=== PATIENT | female | born 2000 | race Caucasian/White ===

== ENCOUNTER → 2021-01-17 12:28 | Outpatient (CLI) | payer OTHER, SELFPAY ==
[2021-01-17 19:42] LABS: Add Manual Diff / Slide Review NO; Basophils Absolute Auto 100 /uL (0-100); Basophils Percent Auto 1.1 % (0-2); Eosinophils Absolute Auto 100 /uL (0-450); Eosinophils Percent Auto 1.7 % (2-4); Hemoglobin 13.5 g/dL (12.0-16.0); Lymphocytes Absolute Auto 2100 /uL (1100-4500); Lymphocytes Percent Auto 35.9 % (25-40); Mean Corpuscular HGB Conc 32.9 % (30-36); Mean Corpuscular Hemoglobin 29.2 PG (26-34); Mean Corpuscular Volume 88.8 fL (80-100); Monocytes Absolute Auto 300 /uL (0-900); Monocytes Percent Auto 5.4 % (3-14); Neutrophils Absolute Auto 3200 /uL (1500-7000); Neutrophils Percent Auto 55.9 % (50-75); Platelet Count 385 X10^3/uL (150-400); Red Blood Cell Count 4.62 X10^6/uL (4.0-5.2); Red Cell Distribution Width 13.4 % (11.6-14.8); White Blood Cell Count 5.8 X10^3/uL (4.5-11.0)
[2021-01-17 20:02] LABS: Alanine Aminotransferase 31 IU/L (<35); Albumin 4.4 g/dL (3.5-5.0); Albumin Globulin Ratio 1.4 (1.0-2.8); Alkaline Phosphatase 52 U/L (38-126); Aspartate Aminotransferase 27 IU/L (14-36); BUN Creatinine Ratio 17.6 (6-22); Bilirubin Total 0.9 mg/dL (0.2-1.3); Blood Urea Nitrogen 12 mg/dL (7-17); Calcium 9.5 mg/dL (8.4-10.2); Carbon Dioxide 24 mmol/L (22-32); Chloride 104 mmol/L (98-107); Estimated Glomerular Filt Rate > 60.0 mL/min (>60); Globulin 3.1 g/dL (1.7-4.1); Glucose 81 mg/dL (70-100); HEMOLYSIS < 15 (0-50); Potassium 4.6 mmol/L (3.4-5.1); Sodium 137 mmol/L (137-145); Total Protein 7.5 g/dL (6.3-8.2)
[2021-01-17 20:21] LABS: Thyroid Stimulating Hormone 8.99 uIU/mL (0.47-4.68)
[2021-01-17 20:57] LABS: Free T3, Triiodothyronine Free 3.79 pg/mL (2.77-5.27); Free T4, Direct Thyroxine 0.84 ng/dL (0.78-2.19)
== END ==
PROVIDERS: Family Provider Family Medicine; PCP Family Medicine; Visit Provider Family Medicine
DX: F41.9 Anxiety disorder, unspecified (principal); R00.2 Palpitations
CPT/HCPCS: 80053; 84439; 84443; 84481; 85025

== ENCOUNTER → 2021-09-10 08:04 | Outpatient (CLI) | payer OTHER, SELFPAY ==
[2021-09-10 20:08] LABS: Free T4, Direct Thyroxine 1.09 ng/dL (0.78-2.19)
[2021-09-10 20:22] LABS: TSH w/ Reflex to FT4 6.46 uIU/mL (0.47-4.68)
== END ==
PROVIDERS: Family Provider Family Medicine; PCP Physician Assistant; Visit Provider Physician Assistant
DX: E03.8 Other specified hypothyroidism (principal)
CPT/HCPCS: 84439; 84443

== ENCOUNTER → 2021-11-14 10:53 | Outpatient (CLI) | payer OTHER, SELFPAY ==
[2021-11-19 04:47] LABS: QuantiFERON Mitogen Value >10.00 IU/mL (.); QuantiFERON Nil Value 0.02 IU/mL (.); QuantiFERON TB Gold Plus Negative (Negative); QuantiFERON TB1 Ag Value 0.05 IU/mL (.); QuantiFERON TB2 Ag Value 0.04 IU/mL (.)
== END ==
PROVIDERS: Family Provider Family Medicine; PCP Physician Assistant; Visit Provider Physician Assistant
DX: R76.11 Nonspecific reaction to tuberculin skin test without active tuberculosis (principal)
CPT/HCPCS: 86480

== ENCOUNTER → 2021-12-02 08:19 | Outpatient (CLI) | payer OTHER, SELFPAY ==
[2021-12-02 18:41] LABS: Add Manual Diff / Slide Review NO; Basophils Absolute Auto 0 /uL (0-100); Basophils Percent Auto 0.7 % (0-2); Eosinophils Absolute Auto 100 /uL (0-450); Eosinophils Percent Auto 2.5 % (2-4); Hematocrit 38.6 % (36-46); Hemoglobin 13.1 g/dL (12.0-16.0); Lymphocytes Absolute Auto 2000 /uL (1100-4500); Lymphocytes Percent Auto 40.7 % (25-40); Mean Corpuscular HGB Conc 33.8 % (30-36); Mean Corpuscular Hemoglobin 29.1 PG (26-34); Mean Corpuscular Volume 86.1 fL (80-100); Monocytes Absolute Auto 300 /uL (0-900); Monocytes Percent Auto 5.5 % (3-14); Neutrophils Absolute Auto 2400 /uL (1500-7000); Neutrophils Percent Auto 50.6 % (50-75); Platelet Count 336 X10^3/uL (150-400); Red Blood Cell Count 4.49 X10^6/uL (4.0-5.2); Red Cell Distribution Width 13.9 % (11.6-14.8); White Blood Cell Count 4.8 X10^3/uL (4.5-11.0)
[2021-12-02 18:51] LABS: Hemoglobin A1C% w Est Avg Glu 5.2 % (4.0-6.0)
[2021-12-02 19:13] LABS: Alanine Aminotransferase 18 IU/L (<35); Albumin 4.2 g/dL (3.5-5.0); Albumin Globulin Ratio 1.4 (1.0-2.8); Alkaline Phosphatase 45 U/L (38-126); Aspartate Aminotransferase 25 IU/L (14-36); BUN Creatinine Ratio 18.1 (6-22); Bilirubin Total 0.7 mg/dL (0.2-1.3); Blood Urea Nitrogen 15 mg/dL (7-17); Calcium 8.9 mg/dL (8.4-10.2); Carbon Dioxide 25 mmol/L (22-32); Chloride 104 mmol/L (98-107); Cholesterol 216 mg/dL (140-199); Estimated Glomerular Filt Rate > 60 mL/min (>60); Globulin 3.1 g/dL (1.7-4.1); Glucose 93 mg/dL (70-100); HDL Cholesterol 53 mg/dL (40-60); HEMOLYSIS < 15 (0-50); LDL Cholesterol Calculated 131 mg/dL (<100); Potassium 4.1 mmol/L (3.4-5.1); Sodium 137 mmol/L (137-145); Total Protein 7.3 g/dL (6.3-8.2); Triglycerides 159 mg/dL (35-150)
[2021-12-02 19:34] LABS: TSH w/ Reflex to FT4 5.68 uIU/mL (0.47-4.68)
[2021-12-02 20:07] LABS: Free T4, Direct Thyroxine 0.85 ng/dL (0.78-2.19)
== END ==
PROVIDERS: Family Provider Family Medicine; PCP Physician Assistant; Visit Provider Internal Medicine Cardiovascular Disease
DX: R00.2 Palpitations (principal); Z13.1 Encounter for screening for diabetes mellitus; Z13.220 Encounter for screening for lipoid disorders
CPT/HCPCS: 80053; 80061; 83036; 84439; 84443; 85025

== ENCOUNTER → 2022-07-21 10:18 | Outpatient (CLI) | payer OTHER, SELFPAY ==
[2022-07-21 19:37] LABS: Alanine Aminotransferase 23 IU/L (<35); Albumin 3.9 g/dL (3.5-5.0); Albumin Globulin Ratio 1.3 (1.0-2.8); Alkaline Phosphatase 39 U/L (38-126); Aspartate Aminotransferase 17 IU/L (14-36); BUN Creatinine Ratio 15.3 (6-22); Bilirubin Total 0.4 mg/dL (0.2-1.3); Blood Urea Nitrogen 9 mg/dL (7-17); Calcium 8.9 mg/dL (8.4-10.2); Carbon Dioxide 23 mmol/L (22-32); Chloride 103 mmol/L (98-107); Estimated Glomerular Filt Rate > 60 mL/min (>60); Glucose 81 mg/dL (70-100); HEMOLYSIS < 15 (0-50); Lipase 50 U/L (23-300); Potassium 3.8 mmol/L (3.4-5.1); Sodium 134 mmol/L (137-145); Total Protein 6.9 g/dL (6.3-8.2)
[2022-07-21 19:40] LABS: Add Manual Diff / Slide Review NO; Basophils Absolute Auto 0 /uL (0-100); Basophils Percent Auto 0.4 % (0-2); Eosinophils Absolute Auto 100 /uL (0-450); Hematocrit 35.4 % (36-46); Hemoglobin 12.4 g/dL (12.0-16.0); Lymphocytes Absolute Auto 1400 /uL (1100-4500); Lymphocytes Percent Auto 15.9 % (25-40); Mean Corpuscular Hemoglobin 30.7 PG (26-34); Mean Corpuscular Volume 87.5 fL (80-100); Monocytes Absolute Auto 300 /uL (0-900); Monocytes Percent Auto 3.5 % (3-14); Neutrophils Absolute Auto 6800 /uL (1500-7000); Neutrophils Percent Auto 79.2 % (50-75); Platelet Count 331 X10^3/uL (150-400); Red Blood Cell Count 4.04 X10^6/uL (4.0-5.2); White Blood Cell Count 8.5 X10^3/uL (4.5-11.0)
[2022-07-21 19:56] LABS: Free T4, Direct Thyroxine 0.84 ng/dL (0.78-2.19)
== END ==
PROVIDERS: Family Provider Family Medicine; PCP Physician Assistant; Visit Provider Physician Assistant
DX: E03.8 Other specified hypothyroidism (principal); R11.10 Vomiting, unspecified
CPT/HCPCS: 80053; 83690; 84439; 85025

== ENCOUNTER → 2022-08-11 16:31 | Outpatient (CLI) | payer OTHER, SELFPAY ==
[2022-08-11 16:54] LABS: Add Manual Diff / Slide Review NO; Basophils Absolute Auto 0 /uL (0-100); Basophils Percent Auto 0.2 % (0-2); Eosinophils Absolute Auto 100 /uL (0-450); Eosinophils Percent Auto 1.1 % (2-4); Hematocrit 33.7 % (36-46); Hemoglobin 11.8 g/dL (12.0-16.0); Lymphocytes Absolute Auto 2000 /uL (1100-4500); Lymphocytes Percent Auto 21.9 % (25-40); Mean Corpuscular HGB Conc 34.9 % (30-36); Mean Corpuscular Hemoglobin 30.6 PG (26-34); Mean Corpuscular Volume 87.5 fL (80-100); Monocytes Absolute Auto 500 /uL (0-900); Monocytes Percent Auto 5.6 % (3-14); Neutrophils Absolute Auto 6400 /uL (1500-7000); Neutrophils Percent Auto 71.2 % (50-75); Platelet Count 335 X10^3/uL (150-400); Red Blood Cell Count 3.86 X10^6/uL (4.0-5.2); Red Cell Distribution Width 13.2 % (11.6-14.8)
[2022-08-11 18:44] LABS: TSH w/ Reflex to FT4 4.15 uIU/mL (0.47-4.68)
[2022-08-13 08:37] LABS: Varicella IgG Antibody 1368 index (Immune >165)
[2022-08-13 16:18] LABS: Hepatitis B Surface Antigen NEGATIVE s/c (NEGATIVE); Rubella Antibody IgG 24.3 IU/mL (>15)
[2022-08-13 16:34] LABS: HIV 1 & 2 Ab/Ag 4th Gen Combo NEGATIVE (NEGATIVE); Hep C Virus Ab w/Reflex Quant NEGATIVE s/c (NEGATIVE)
[2022-08-14 07:23] LABS: RPR Screen Non Reactive (Non Reactive)
== END ==
PROVIDERS: Family Provider Family Medicine; PCP Physician Assistant; Referring Provider Obstetrics & Gynecology; Visit Provider Obstetrics & Gynecology
DX: Z34.02 Encounter for supervision of normal first pregnancy, second trimester (principal)
CPT/HCPCS: 36415; 80055; 84443; 86787; 86803; 86850; 86900; 86901; 87389

== ENCOUNTER → 2022-09-01 08:40 | Outpatient (CLI) | payer OTHER, SELFPAY ==
--- NOTE | 2022-09-01 08:41 | DI.US.S_ITS ---
PROCEDURE: US OB FOLLOW UP INDICATIONS: FOLLOW UP ANATOMY OUTSIDE/PRIOR DATING DATA: Last menstrual period (LMP): 04/12/2022. LMP-based estimated date of delivery (AURELIO): 01/17/2023. First dating scan (date and location): 07/22/2022. Estimated date of delivery (AURELIO) from first dating scan: 12/22/2022. The calculations are made using the working AURELIO of 12/22/2022. TECHNIQUE: Real-time scanning was performed of the fetus, with image documentation and biometric measurements. Endovaginal scanning: None COMPARISON: [facility], RG, US OB > 14 WEEKS, 07/22/2022, 16:25. FINDINGS: General: A single living intrauterine gestation is present. Presentation: Breech. Placenta: Placental position is posterior , without previa. Lower edge of the placenta is 1.9 cm from the internal os Amniotic fluid index: 23.2 cm, normal range is 5-24 cm. Single deepest vertical pocket is 7.1 cm. heart rate: 158 beats per minute. Maternal cervical canal: 4.9 cm long. Normal lower limit is 2.5 cm. Clinically estimated gestational age: 24 week 0 day Anatomic survey: Neuro: Ventricles unremarkable. Cisterna magna and cerebellum not well seen. Nuchal region: Double nuchal cord wrapped Face: Nose and lips, facial profile are normal. Spine: Not well seen Heart: Not well seen Diaphragm: Diaphragm is intact. Stomach: Left-sided stomach is present. Kidneys: No hydronephrosis. Normal is less than 5 mm in 2nd trimester, less than 7 mm in 3rd trimester. Cord: Three-vessel cord Bladder: Normal in size. Extremities: Not well seen IMPRESSION: 1. Single live intrauterine consistent with 24 week 0 day gestation. 2. Low lying placenta, 1.9 cm from the internal os. 3. Amniotic fluid volume upper limits of normal at 23.2 cm. 4. Double wrapped nuchal cord 5. anatomy not well seen, detailed above. Additional follow-up. Approved by: Kobe Landaverde M.D. on 09/01/2022 at 17:29
== END ==
PROVIDERS: Family Provider Family Medicine; PCP Physician Assistant; Referring Provider Obstetrics & Gynecology; Visit Provider Obstetrics & Gynecology
DX: Z36.2 Encounter for other antenatal screening follow-up (principal); O44.42 Low lying placenta NOS or without hemorrhage, second trimester; Z11.3 Encounter for screening for infections with a predominantly sexual mode of transmission; Z3A.24 24 weeks gestation of pregnancy
CPT/HCPCS: 76816; 87086

== ENCOUNTER → 2022-09-01 13:35 | Outpatient (CLI) | payer OTHER, SELFPAY | PROVIDERS: Family Provider Family Medicine; PCP Physician Assistant; Visit Provider Obstetrics & Gynecology | DX: Z34.02 Encounter for supervision of normal first pregnancy, second trimester (principal); Z11.3 Encounter for screening for infections with a predominantly sexual mode of transmission; Z3A.24 24 weeks gestation of pregnancy | CPT/HCPCS: 87086 ==

== ENCOUNTER → 2022-09-30 09:49 | Outpatient (CLI) | payer OTHER, SELFPAY ==
--- NOTE | 2022-09-30 09:50 | DI.US.S_ITS ---
PROCEDURE: US OB FOLLOW UP INDICATIONS: Finalize anatomic survey OUTSIDE/PRIOR DATING DATA: Last menstrual period (LMP): 04/12/2022 LMP-based estimated date of delivery (AURELIO): 01/17/2023 First dating scan (date and location): 07/22/2022 Estimated date of delivery (AURELIO) from first dating scan: 12/22/2022 The calculations are made using the working AURELIO of 12/22/2022 TECHNIQUE: Real-time scanning was performed of the fetus, with image documentation. Endovaginal scanning: Not performed. COMPARISON: [facility], OB FOLLOW UP, 09/01/2022, 9:06. FINDINGS: A single living intrauterine gestation is present. Presentation: Breech Placenta: Placental position is posterior without previa. Inferior margin of the placenta is 3.4 cm from the internal cervical os. Amniotic fluid index: 17.8 cm, normal range is 5-24 cm. Single deepest vertical pocket is 6.4 cm. heart rate: 149 beats per minute. Maternal cervical canal: 4.7 cm long. Normal lower limit is 2.5 cm. Clinically estimated gestational age: 28 weeks 1 day anatomy: Four-chamber heart and right and left ventricular outflow tracts are within normal limits. spine, cord insertion, and extremities not evaluated. IMPRESSION: 1. Single live intrauterine . 2. Four-chamber heart and left and right ventricular outflow tracts are within normal limits. spine, cord insertion, and extremities not well evaluated due to gestational age. 3. Amniotic fluid index is within normal limits. 4. No sonographic evidence of placenta previa. Inferior placental margin is 3.4 cm from the internal cervical os. Approved by: Chintan Houser M.D. on 09/30/2022 at 16:52
== END ==
PROVIDERS: Family Provider Family Medicine; PCP Physician Assistant; Referring Provider Obstetrics & Gynecology; Visit Provider Obstetrics & Gynecology
DX: Z36.2 Encounter for other antenatal screening follow-up (principal); O26.893 Other specified pregnancy related conditions, third trimester; Z67.91 Unspecified blood type, Rh negative; Z3A.28 28 weeks gestation of pregnancy
CPT/HCPCS: 36415; 76816; 82950; 85014; 85018; 86850

== ENCOUNTER → 2022-09-30 10:30 | Outpatient (CLI) | payer OTHER, SELFPAY ==
[2022-09-30 12:53] LABS: Hematocrit 29.8 % (36-46); Hemoglobin 10.2 g/dL (12.0-16.0)
[2022-09-30 13:10] LABS: GTT (PREG) 1 Hour PP 50gm Dose 97 mg/dL (76-139)
== END ==
PROVIDERS: Family Provider Family Medicine; PCP Physician Assistant; Referring Provider Obstetrics & Gynecology; Visit Provider Obstetrics & Gynecology
DX: O26.899 Other specified pregnancy related conditions, unspecified trimester (principal); Z3A.26 26 weeks gestation of pregnancy; Z67.91 Unspecified blood type, Rh negative
CPT/HCPCS: 36415; 82950; 85014; 85018; 86850

== ENCOUNTER → 2022-10-12 12:30 | Outpatient (CLI) | payer OTHER, SELFPAY ==
[2022-10-12 20:50] LABS: Basophils Absolute Auto 100 /uL (0-100); Basophils Percent Auto 0.5 % (0-2); Eosinophils Absolute Auto 100 /uL (0-450); Eosinophils Percent Auto 0.7 % (2-4); Lymphocytes Absolute Auto 1800 /uL (1100-4500); Lymphocytes Percent Auto 13.1 % (25-40); Mean Corpuscular HGB Conc 33.4 % (30-36); Mean Corpuscular Hemoglobin 28.7 PG (26-34); Mean Corpuscular Volume 85.9 fL (80-100); Monocytes Absolute Auto 800 /uL (0-900); Monocytes Percent Auto 5.6 % (3-14); Neutrophils Absolute Auto 10800 /uL (1500-7000); Neutrophils Percent Auto 80.1 % (50-75); Platelet Count 444 X10^3/uL (150-400); Red Blood Cell Count 3.84 X10^6/uL (4.0-5.2); Red Cell Distribution Width 13.3 % (11.6-14.8); White Blood Cell Count 13.4 X10^3/uL (4.5-11.0)
[2022-10-12 20:59] LABS: Alanine Aminotransferase 19 IU/L (<35); Albumin 3.6 g/dL (3.5-5.0); Albumin Globulin Ratio 1.2 (1.0-2.8); Alkaline Phosphatase 69 U/L (38-126); Aspartate Aminotransferase 20 IU/L (14-36); BUN Creatinine Ratio 13.5 (6-22); Bilirubin Total 0.3 mg/dL (0.2-1.3); Blood Urea Nitrogen 7 mg/dL (7-17); Calcium 9.8 mg/dL (8.4-10.2); Carbon Dioxide 25 mmol/L (22-32); Chloride 101 mmol/L (98-107); Estimated Glomerular Filt Rate > 60 mL/min (>60); Glucose 73 mg/dL (70-100); HEMOLYSIS < 15 (0-50); Lactate Dehydrogenase 190 U/L (120-246); Potassium 4.4 mmol/L (3.4-5.1); Sodium 134 mmol/L (137-145); Total Protein 6.6 g/dL (6.3-8.2); Uric Acid 3.4 mg/dL (2.5-6.2)
[2022-10-12 21:18] LABS: Add Manual Diff / Slide Review SLIDE REVIEW
[2022-10-12 21:19] LABS: RBC Morphology Normal Morphology
== END ==
PROVIDERS: Family Provider Family Medicine; PCP Physician Assistant; Visit Provider Family Medicine
DX: O16.3 Unspecified maternal hypertension, third trimester (principal); O26.899 Other specified pregnancy related conditions, unspecified trimester; R42 Dizziness and giddiness; R51.9 Headache, unspecified; Z3A.29 29 weeks gestation of pregnancy
CPT/HCPCS: 80053; 83615; 84550; 85025

== ENCOUNTER → 2022-10-13 12:18 | Outpatient (CLI) | payer OTHER, SELFPAY ==
[2022-10-13 13:20] LABS: TSH w/ Reflex to FT4 2.68 uIU/mL (0.47-4.68)
[2022-10-13 19:58] LABS: Creatinine Urine Random 205.4 mg/dL
[2022-10-13 20:01] LABS: Protein (Total) Urine Random < 5 mg/dL (0-12); Protein Creatinine Ratio Urine < 0.02 GRAM/24H
== END ==
PROVIDERS: Family Provider Family Medicine; PCP Physician Assistant; Visit Provider Family Medicine
DX: O16.3 Unspecified maternal hypertension, third trimester (principal); Z3A.30 30 weeks gestation of pregnancy; R00.0 Tachycardia, unspecified
CPT/HCPCS: 82570; 84156; 84443

== ENCOUNTER → 2022-10-16 15:28 | Outpatient (CLI) | payer OTHER, SELFPAY ==
[2022-10-16 15:52] LABS: Add Manual Diff / Slide Review NO; Basophils Absolute Auto 0 /uL (0-100); Basophils Percent Auto 0.4 % (0-2); Eosinophils Absolute Auto 200 /uL (0-450); Eosinophils Percent Auto 1.5 % (2-4); Hematocrit 31.4 % (36-46); Hemoglobin 10.8 g/dL (12.0-16.0); Lymphocytes Absolute Auto 1700 /uL (1100-4500); Lymphocytes Percent Auto 15.5 % (25-40); Mean Corpuscular HGB Conc 34.3 % (30-36); Mean Corpuscular Hemoglobin 29.3 PG (26-34); Mean Corpuscular Volume 85.5 fL (80-100); Monocytes Absolute Auto 500 /uL (0-900); Monocytes Percent Auto 4.8 % (3-14); Neutrophils Absolute Auto 8500 /uL (1500-7000); Neutrophils Percent Auto 77.8 % (50-75); Platelet Count 435 X10^3/uL (150-400); Red Blood Cell Count 3.68 X10^6/uL (4.0-5.2); Red Cell Distribution Width 13.3 % (11.6-14.8); White Blood Cell Count 10.9 X10^3/uL (4.5-11.0)
[2022-10-16 16:05] LABS: Alanine Aminotransferase 18 IU/L (<35); Albumin 3.8 g/dL (3.5-5.0); Albumin Globulin Ratio 1.2 (1.0-2.8); Alkaline Phosphatase 63 U/L (38-126); Aspartate Aminotransferase 17 IU/L (14-36); BUN Creatinine Ratio 16.1 (6-22); Bilirubin Total 0.3 mg/dL (0.2-1.3); Blood Urea Nitrogen 9 mg/dL (7-17); Calcium 8.8 mg/dL (8.4-10.2); Carbon Dioxide 22 mmol/L (22-32); Chloride 101 mmol/L (98-107); Estimated Glomerular Filt Rate > 60 mL/min (>60); Globulin 3.2 g/dL (1.7-4.1); Glucose 112 mg/dL (70-100); HEMOLYSIS < 15 (0-50); Potassium 4.2 mmol/L (3.4-5.1); Sodium 134 mmol/L (137-145); Uric Acid 3.4 mg/dL (2.5-6.2)
== END ==
PROVIDERS: Family Provider Family Medicine; PCP Obstetrics & Gynecology; Referring Provider Obstetrics & Gynecology; Visit Provider Obstetrics & Gynecology
DX: O16.3 Unspecified maternal hypertension, third trimester (principal); Z3A.00 Weeks of gestation of pregnancy not specified
CPT/HCPCS: 36415; 80053; 84550; 85025

== ENCOUNTER → 2022-10-16 15:29 | Outpatient (CLI) | payer OTHER, SELFPAY ==
[2022-10-16 17:56] LABS: Creatinine Urine Random 278.9 mg/dL; Protein (Total) Urine Random < 5 mg/dL (0-12); Protein Creatinine Ratio Urine 0.01 GRAM/24H
== END ==
PROVIDERS: Family Provider Family Medicine; PCP Obstetrics & Gynecology; Visit Provider Obstetrics & Gynecology
DX: O13.3 Gestational [pregnancy-induced] hypertension without significant proteinuria, third trimester (principal); Z3A.30 30 weeks gestation of pregnancy
CPT/HCPCS: 36415; 80053; 82570; 84156; 84550; 85025

== ENCOUNTER → 2022-10-20 09:50 | Outpatient (CLI) | payer OTHER, SELFPAY ==
--- NOTE | 2022-10-20 09:52 | DI.US.S_ITS ---
PROCEDURE: US OB >= 14 WEEKS FETUS INDICATIONS: SIZE GREATER THAN DATES,GESTATIONAL HYPERTENSION OUTSIDE/PRIOR DATING DATA: Last menstrual period (LMP): 04/12/2022. LMP-based estimated date of delivery (AURELIO): 01/17/2023. First dating scan (date and location): 07/22/2022. Estimated date of delivery (AURELIO) from first dating scan: 12/22/2022 (working AURELIO). TECHNIQUE: Real-time scanning was performed of the fetus, with image documentation and biometric measurements. COMPARISON: [facility], US, US OB >= 14 WEEKS FETUS, 09/30/2022, 15:25. FINDINGS: General: A single living intrauterine gestation is present. Presentation: Vertex. Placenta: Placental position is posterior , without previa. Amniotic fluid index: 18.1 cm, normal range is 5-24 cm. heart rate: 152 beats per minute. Maternal cervical canal: 4.9 cm long. biometrics: Biparietal diameter: 8.2 cm, 32 weeks and 6 days Head circumference: 30.4 cm, 33 weeks and 6 days Abdominal circumference: 30.5 cm, 34 weeks and 3 days Femur length: 6.1 cm, 31 weeks and 3 days Clinically estimated gestational age: 31 weeks Composite gestational age from present scan: 33 weeks and 1 day Estimated weight and percentile: 97th percentile, estimated weight is 2186 g IMPRESSION: Living intrauterine gestation at 31 weeks. Fetus is borderline large for gestational age with today's biometry at the 97th percentile, driven primarily by the large abdominal circumference measurement. Consider continued follow-up. SONIA is within normal limits. We strive to produce accurate, complete, and clear reports of imaging services. To assist us in improving patient care, this report was composed using standard report templates and voice recognition software. Therefore, it may contain abnormal punctuation, insertions and/or omissions. Occasional wrong-word or sound-alike substitutions may occur. Though we review the report and make efforts to correct it, we do recommend that the report be read carefully in proper context to recognize any text inaccuracies. Dictated by: Mohamud Maldonado M.D. on 10/20/2022 at 11:29 Approved by: Mohamud Maldonado M.D. on 10/20/2022 at 11:32
== END ==
PROVIDERS: Family Provider Family Medicine; PCP Obstetrics & Gynecology; Referring Provider Obstetrics & Gynecology; Visit Provider Obstetrics & Gynecology
DX: O16.3 Unspecified maternal hypertension, third trimester (principal); O26.843 Uterine size-date discrepancy, third trimester; O99.891 Other specified diseases and conditions complicating pregnancy; R31.9 Hematuria, unspecified; Z3A.31 31 weeks gestation of pregnancy
CPT/HCPCS: 76811; 87086

== ENCOUNTER → 2022-10-20 15:18 | Outpatient (CLI) | payer OTHER, SELFPAY | PROVIDERS: Family Provider Family Medicine; PCP Physician Assistant; Visit Provider Obstetrics & Gynecology | DX: R31.9 Hematuria, unspecified (principal); Z34.03 Encounter for supervision of normal first pregnancy, third trimester; Z3A.31 31 weeks gestation of pregnancy | CPT/HCPCS: 87086 ==

== ENCOUNTER 2022-10-30 13:26 | Outpatient (CLI) | payer OTHER, SELFPAY ==
--- NOTE | 2022-10-30 15:16 | P.TNLD_ITS ---
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 Open wound of left foot (~01/03/18) Oral contraceptive pill surveillance (~02/22/18) Palpitations Positive TB test Right ankle sprain Right foot pain Sore throat Urinary tract infection Uses oral contraception Surgical History (Updated 08/06/22 @ 15:43 by Lucy Calvin, RN) Anesthesia History of tonsillectomy (~2009) [place] teeth extracted Family History (Updated 08/06/22 @ 15:45 by Lucy Calvin, RN) Father Diabetes mellitus Hypertension Grandmother Breast cancer Mother Ovarian cyst Grandfather Cancer Grandmother Hypertension Grandfather Cancer Social History marital status: unmarried,single number of children: 0 household members: family (father) lives independently: Yes caregiver/support person: No housing: house pets and animals: Yes (4 dogs, 4 cats. S/O manages litter box) education level: college (Associate's degree, working on [employer]) occupational status: employed current occupational exposures/hazards: No special corrine needs: No travel history: recent (domestic only) seatbelt use: always water heater temp set < 120 deg: Yes working smoke detector in home: Yes fire extinguisher in home: Yes carbon monox detector in home: Yes firearms in home: No do you feel safe at home: Yes Smoking Status: Former smoker (quit vaping when she learned she was ) Tobacco: How many years used: 4 second hand exposure: Yes (father smokes outdoors) alcohol intake: former (occasionally when not ) substance use type: marijuana (stopped when she learned she was ) during the past year weight has: decreased > 10 lbs (1st trimester lost ~20 lb due to N/V) well-balanced diet: about half the time daily servings fruits/ve-4 caffeine: No (quit drinking coffee when she learned she was ) Type(s) of exercise: walking frequency: daily Evaluation Evaluation Baseline heart rate: 140 Variability: Moderate (11-25) monitor accelerations: Present Monitor Decelerations: Absent Category of Tracing: Reactive Diagnosis, Plan/Disposition Plan/Disposition Plan: Assessment: 22 year old at 32 wks gestation with HTN Reactive NST Plan: F/U as scheduled OB Disposition: home
== END 2022-10-30 14:15 | disposition home or self-care (01) ==
LOC: LABOR 14:05 → OB 11-02 15:51
PROVIDERS: Family Provider Family Medicine; PCP Physician Assistant; Referring Provider Obstetrics & Gynecology; Visit Provider Obstetrics & Gynecology
DX: O16.3 Unspecified maternal hypertension, third trimester (principal); Z3A.32 32 weeks gestation of pregnancy
CPT/HCPCS: 59025; G0378; G0379

== ENCOUNTER 2022-11-04 14:55 | Outpatient (CLI) | payer OTHER, SELFPAY | END 2022-11-04 15:35 | disposition home or self-care (01) | LOC: LABOR 15:03 → OB 11-09 06:07 | PROVIDERS: Family Provider Family Medicine; PCP Physician Assistant; Referring Provider Obstetrics & Gynecology; Visit Provider Obstetrics & Gynecology | DX: O13.3 Gestational [pregnancy-induced] hypertension without significant proteinuria, third trimester (principal); Z3A.33 33 weeks gestation of pregnancy; O13.9 Gestational [pregnancy-induced] hypertension without significant proteinuria, unspecified trimester; Z20.2 Contact with and (suspected) exposure to infections with a predominantly sexual mode of transmission | CPT/HCPCS: 36415; 59025; 80053; 84550; 85025; 86592; 86803; 87350; 87389; G0378; G0379 ==

== ENCOUNTER → 2022-11-04 16:24 | Outpatient (CLI) | payer OTHER, SELFPAY ==
[2022-11-04 18:15] LABS: Add Manual Diff / Slide Review NO; Basophils Absolute Auto 0 /uL (0-100); Basophils Percent Auto 0.2 % (0-2); Eosinophils Absolute Auto 100 /uL (0-450); Eosinophils Percent Auto 1.1 % (2-4); Hematocrit 33.2 % (36-46); Hemoglobin 11.2 g/dL (12.0-16.0); Lymphocytes Absolute Auto 1500 /uL (1100-4500); Lymphocytes Percent Auto 17.6 % (25-40); Mean Corpuscular HGB Conc 33.6 % (30-36); Mean Corpuscular Hemoglobin 28.8 PG (26-34); Mean Corpuscular Volume 85.7 fL (80-100); Monocytes Absolute Auto 500 /uL (0-900); Monocytes Percent Auto 5.4 % (3-14); Neutrophils Absolute Auto 6600 /uL (1500-7000); Neutrophils Percent Auto 75.7 % (50-75); Platelet Count 413 X10^3/uL (150-400); Red Blood Cell Count 3.88 X10^6/uL (4.0-5.2); Red Cell Distribution Width 13.9 % (11.6-14.8); White Blood Cell Count 8.7 X10^3/uL (4.5-11.0)
[2022-11-04 18:48] LABS: Alanine Aminotransferase 16 IU/L (<35); Albumin 3.9 g/dL (3.5-5.0); Albumin Globulin Ratio 1.3 (1.0-2.8); Alkaline Phosphatase 75 U/L (38-126); Aspartate Aminotransferase 17 IU/L (14-36); BUN Creatinine Ratio 16.3 (6-22); Bilirubin Total 0.2 mg/dL (0.2-1.3); Blood Urea Nitrogen 8 mg/dL (7-17); Calcium 8.9 mg/dL (8.4-10.2); Carbon Dioxide 23 mmol/L (22-32); Chloride 102 mmol/L (98-107); Estimated Glomerular Filt Rate > 60 mL/min (>60); Globulin 3.1 g/dL (1.7-4.1); Glucose 106 mg/dL (70-100); HEMOLYSIS < 15 (0-50); Potassium 3.9 mmol/L (3.4-5.1); Sodium 134 mmol/L (137-145); Uric Acid 3.9 mg/dL (2.5-6.2)
[2022-11-05 16:58] LABS: HIV 1 & 2 Ab/Ag 4th Gen Combo NEGATIVE (NEGATIVE); Hep C Virus Ab w/Reflex Quant NEGATIVE s/c (NEGATIVE)
[2022-11-07 07:46] LABS: Hepatitis BE Antigen Negative (Negative)
[2022-11-07 11:01] LABS: RPR Screen Non Reactive (Non Reactive)
== END ==
PROVIDERS: Family Provider Family Medicine; PCP Physician Assistant; Referring Provider Obstetrics & Gynecology; Visit Provider Obstetrics & Gynecology
DX: Z20.2 Contact with and (suspected) exposure to infections with a predominantly sexual mode of transmission (principal); O13.9 Gestational [pregnancy-induced] hypertension without significant proteinuria, unspecified trimester
CPT/HCPCS: 36415; 80053; 84550; 85025; 86592; 86803; 87350; 87389

== ENCOUNTER 2022-11-11 09:35 | Outpatient (CLI) | payer OTHER, SELFPAY | END 2022-11-11 10:22 | disposition home or self-care (01) | LOC: LABOR 10:02 → OB 11-13 15:21 | PROVIDERS: Family Provider Family Medicine; PCP Physician Assistant; Referring Provider Obstetrics & Gynecology; Visit Provider Obstetrics & Gynecology | DX: O13.3 Gestational [pregnancy-induced] hypertension without significant proteinuria, third trimester (principal); Z3A.34 34 weeks gestation of pregnancy | CPT/HCPCS: 36415; 59025; 80053; 85025; G0378; G0379 ==

== ENCOUNTER → 2022-11-11 11:37 | Outpatient (CLI) | payer OTHER, SELFPAY ==
[2022-11-11 12:48] LABS: Add Manual Diff / Slide Review NO; Basophils Absolute Auto 0 /uL (0-100); Basophils Percent Auto 0.5 % (0-2); Eosinophils Absolute Auto 100 /uL (0-450); Eosinophils Percent Auto 0.9 % (2-4); Hematocrit 30.6 % (36-46); Hemoglobin 10.4 g/dL (12.0-16.0); Lymphocytes Absolute Auto 1500 /uL (1100-4500); Lymphocytes Percent Auto 19.6 % (25-40); Mean Corpuscular HGB Conc 33.9 % (30-36); Mean Corpuscular Hemoglobin 28.5 PG (26-34); Monocytes Absolute Auto 500 /uL (0-900); Monocytes Percent Auto 7.1 % (3-14); Neutrophils Absolute Auto 5500 /uL (1500-7000); Neutrophils Percent Auto 71.9 % (50-75); Platelet Count 367 X10^3/uL (150-400); Red Blood Cell Count 3.64 X10^6/uL (4.0-5.2); Red Cell Distribution Width 13.8 % (11.6-14.8); White Blood Cell Count 7.6 X10^3/uL (4.5-11.0)
[2022-11-11 14:43] LABS: Alanine Aminotransferase 15 IU/L (<35); Albumin 3.7 g/dL (3.5-5.0); Albumin Globulin Ratio 1.2 (1.0-2.8); Alkaline Phosphatase 73 U/L (38-126); Aspartate Aminotransferase 17 IU/L (14-36); BUN Creatinine Ratio 18.2 (6-22); Bilirubin Total 0.2 mg/dL (0.2-1.3); Blood Urea Nitrogen 8 mg/dL (7-17); Calcium 9.2 mg/dL (8.4-10.2); Carbon Dioxide 22 mmol/L (22-32); Chloride 103 mmol/L (98-107); Estimated Glomerular Filt Rate > 60 mL/min (>60); Glucose 83 mg/dL (70-100); HEMOLYSIS < 15 (0-50); Potassium 3.7 mmol/L (3.4-5.1); Sodium 134 mmol/L (137-145); Total Protein 6.7 g/dL (6.3-8.2)
== END ==
PROVIDERS: Family Provider Family Medicine; PCP Physician Assistant; Referring Provider Obstetrics & Gynecology; Visit Provider Obstetrics & Gynecology
DX: O13.9 Gestational [pregnancy-induced] hypertension without significant proteinuria, unspecified trimester (principal)
CPT/HCPCS: 36415; 80053; 85025

== ENCOUNTER 2022-11-18 12:14 | Outpatient (CLI) | payer OTHER, SELFPAY ==
[2022-11-18 12:51] LABS: Add Manual Diff / Slide Review NO; Basophils Absolute Auto 0 /uL (0-100); Basophils Percent Auto 0.5 % (0-2); Eosinophils Absolute Auto 100 /uL (0-450); Eosinophils Percent Auto 0.8 % (2-4); Hematocrit 32.1 % (36-46); Hemoglobin 10.9 g/dL (12.0-16.0); Lymphocytes Absolute Auto 1500 /uL (1100-4500); Lymphocytes Percent Auto 17.2 % (25-40); Mean Corpuscular Hemoglobin 28.2 PG (26-34); Mean Corpuscular Volume 83.1 fL (80-100); Monocytes Absolute Auto 600 /uL (0-900); Monocytes Percent Auto 6.6 % (3-14); Neutrophils Absolute Auto 6700 /uL (1500-7000); Neutrophils Percent Auto 74.9 % (50-75); Platelet Count 405 X10^3/uL (150-400); Red Blood Cell Count 3.86 X10^6/uL (4.0-5.2); Red Cell Distribution Width 14.1 % (11.6-14.8)
[2022-11-18 13:04] LABS: Alanine Aminotransferase 16 IU/L (<35); Albumin 3.6 g/dL (3.5-5.0); Albumin Globulin Ratio 1.2 (1.0-2.8); Alkaline Phosphatase 80 U/L (38-126); Aspartate Aminotransferase 17 IU/L (14-36); BUN Creatinine Ratio 16.7 (6-22); Bilirubin Total 0.3 mg/dL (0.2-1.3); Blood Urea Nitrogen 7 mg/dL (7-17); Calcium 8.8 mg/dL (8.4-10.2); Carbon Dioxide 20 mmol/L (22-32); Chloride 105 mmol/L (98-107); Estimated Glomerular Filt Rate > 60 mL/min (>60); Glucose 95 mg/dL (70-100); HEMOLYSIS < 15 (0-50); Potassium 4.1 mmol/L (3.4-5.1); Sodium 133 mmol/L (137-145); Total Protein 6.6 g/dL (6.3-8.2)
== END 2022-11-18 12:25 | disposition home or self-care (01) ==
LOC: LABOR 12:44 → OB 11-20 14:25
PROVIDERS: Family Provider Family Medicine; PCP Physician Assistant; Referring Provider Obstetrics & Gynecology; Visit Provider Obstetrics & Gynecology
DX: O13.3 Gestational [pregnancy-induced] hypertension without significant proteinuria, third trimester (principal); Z3A.35 35 weeks gestation of pregnancy
CPT/HCPCS: 59025; 80053; 85025; G0378; G0379

== ENCOUNTER → 2022-11-25 11:49 | Outpatient (CLI) | payer OTHER, SELFPAY ==
[2022-11-25 16:39] LABS: Protein (Total) Urine Random 11 mg/dL (0-12)
[2022-11-25 16:52] LABS: Creatinine Urine Random 395.5 mg/dL; Protein Creatinine Ratio Urine 0.02 GRAM/24H
[2022-11-26 07:41] LABS: Strep Grp B PCR NEG for Grp B Strep
== END ==
PROVIDERS: Family Provider Family Medicine; PCP Physician Assistant; Visit Provider Obstetrics & Gynecology
DX: O13.3 Gestational [pregnancy-induced] hypertension without significant proteinuria, third trimester (principal); Z3A.36 36 weeks gestation of pregnancy
CPT/HCPCS: 82570; 84156; 87653

== ENCOUNTER → 2022-11-25 12:07 | Outpatient (CLI) | payer OTHER, SELFPAY ==
[2022-11-25 12:27] LABS: Add Manual Diff / Slide Review NO; Basophils Absolute Auto 0 /uL (0-100); Basophils Percent Auto 0.6 % (0-2); Eosinophils Absolute Auto 100 /uL (0-450); Hematocrit 32.3 % (36-46); Hemoglobin 11.1 g/dL (12.0-16.0); Lymphocytes Absolute Auto 1500 /uL (1100-4500); Lymphocytes Percent Auto 17.2 % (25-40); Mean Corpuscular HGB Conc 34.4 % (30-36); Mean Corpuscular Hemoglobin 28.1 PG (26-34); Mean Corpuscular Volume 81.6 fL (80-100); Monocytes Absolute Auto 600 /uL (0-900); Monocytes Percent Auto 6.6 % (3-14); Neutrophils Absolute Auto 6400 /uL (1500-7000); Neutrophils Percent Auto 74.6 % (50-75); Platelet Count 401 X10^3/uL (150-400); Red Blood Cell Count 3.96 X10^6/uL (4.0-5.2); Red Cell Distribution Width 14.3 % (11.6-14.8); White Blood Cell Count 8.6 X10^3/uL (4.5-11.0)
[2022-11-25 13:27] LABS: Alanine Aminotransferase 16 IU/L (<35); Albumin 3.5 g/dL (3.5-5.0); Albumin Globulin Ratio 1.3 (1.0-2.8); Alkaline Phosphatase 88 U/L (38-126); Aspartate Aminotransferase 18 IU/L (14-36); BUN Creatinine Ratio 21.3 (6-22); Bilirubin Total 0.3 mg/dL (0.2-1.3); Blood Urea Nitrogen 10 mg/dL (7-17); Calcium 9.3 mg/dL (8.4-10.2); Carbon Dioxide 18 mmol/L (22-32); Chloride 107 mmol/L (98-107); Estimated Glomerular Filt Rate > 60 mL/min (>60); Globulin 2.8 g/dL (1.7-4.1); Glucose 107 mg/dL (70-100); HEMOLYSIS < 15 (0-50); Potassium 4.3 mmol/L (3.4-5.1); Sodium 135 mmol/L (137-145); Total Protein 6.3 g/dL (6.3-8.2)
== END ==
PROVIDERS: Family Provider Family Medicine; PCP Physician Assistant; Referring Provider Obstetrics & Gynecology; Visit Provider Obstetrics & Gynecology
DX: O13.9 Gestational [pregnancy-induced] hypertension without significant proteinuria, unspecified trimester (principal)
CPT/HCPCS: 36415; 80053; 85025

== ENCOUNTER 2022-11-25 12:10 | Outpatient (CLI) | payer OTHER, SELFPAY ==
--- NOTE | 2022-11-25 13:23 | P.TNLD_ITS ---
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 Open wound of left foot (~01/03/18) Oral contraceptive pill surveillance (~02/22/18) Palpitations Positive TB test Right ankle sprain Right foot pain Sore throat Urinary tract infection Uses oral contraception Surgical History (Updated 08/06/22 @ 15:43 by Lucy Calvin, RN) Anesthesia History of tonsillectomy (~2009) [place] teeth extracted Family History (Updated 08/06/22 @ 15:45 by Lucy Calvin, RN) Father Diabetes mellitus Hypertension Grandmother Breast cancer Mother Ovarian cyst Grandfather Cancer Grandmother Hypertension Grandfather Cancer Social History marital status: unmarried,single number of children: 0 household members: family (father) lives independently: Yes caregiver/support person: No housing: house pets and animals: Yes (4 dogs, 4 cats. S/O manages litter box) education level: college (Associate's degree, working on [employer] occupational status: employed current occupational exposures/hazards: No special corrine needs: No travel history: recent (domestic only) seatbelt use: always water heater temp set < 120 deg: Yes working smoke detector in home: Yes fire extinguisher in home: Yes carbon monox detector in home: Yes firearms in home: No do you feel safe at home: Yes Smoking Status: Former smoker (quit vaping when she learned she was ) Tobacco: How many years used: 4 second hand exposure: Yes (father smokes outdoors) alcohol intake: former (occasionally when not ) substance use type: marijuana (stopped when she learned she was ) during the past year weight has: decreased > 10 lbs (1st trimester lost ~20 lb due to N/V) well-balanced diet: about half the time daily servings fruits/ve-4 caffeine: No (quit drinking coffee when she learned she was ) Type(s) of exercise: walking frequency: daily Review of Systems Review of Systems Narrative: Problem-specific ROS positives included in HPI Objective Labs Labs: CBC, CMP, Protein:Creatinine ratio are all normal Evaluation Evaluation Baseline heart rate: 140 Variability: Moderate (11-25) monitor accelerations: Present Monitor Decelerations: Absent Category of Tracing: Reactive Status: Category l Diagnosis, Plan/Disposition Final Diagnosis (1) Gestational HTN: Status: Acute Plan/Disposition Plan: Patient scheduled for induction prior to 38 weeks EGA OB Disposition: home
== END 2022-11-25 13:30 | disposition home or self-care (01) ==
LOC: LABOR 14:01 → OB 11-26 10:30
PROVIDERS: Family Provider Family Medicine; PCP Physician Assistant; Referring Provider Obstetrics & Gynecology; Visit Provider Obstetrics & Gynecology
DX: O13.3 Gestational [pregnancy-induced] hypertension without significant proteinuria, third trimester (principal); Z3A.36 36 weeks gestation of pregnancy
CPT/HCPCS: 36415; 59025; 80053; 82570; 84156; 85025; 87653; G0378; G0379

== ENCOUNTER → 2022-12-02 13:18 | Outpatient (CLI) | payer OTHER, SELFPAY ==
--- NOTE | 2022-12-02 13:19 | DI.US.S_ITS ---
PROCEDURE: US OB LIMITED INDICATIONS: GROWTH US OUTSIDE/PRIOR DATING DATA: Last menstrual period (LMP): 04/12/2022. LMP-based estimated date of delivery (AURELIO): 01/17/2023. First dating scan (date and location): 07/22/2022. Estimated date of delivery (AURELIO) from first dating scan: 12/22/2022. TECHNIQUE: Real-time scanning was performed of the fetus, with image documentation and biometric measurements. Endovaginal scanning: Not performed COMPARISON: [facility], , OB >= 14 WEEKS FETUS, 10/20/2022, 11:18. FINDINGS: General: A single living intrauterine gestation is present. Presentation: Vertex. Placenta: Placental position is posterior , without previa. Amniotic fluid index: 17.2 cm, normal range is 5-24 cm. Single deepest vertical pocket is 4.7 cm. heart rate: 150 beats per minute. Maternal cervical canal: Not well visualized biometrics: Biparietal diameter: 9.6 cm 39 weeks 0 days Head circumference: 33.9 cm 39 weeks 0 days Abdominal circumference: 40.3 cm out of range Femur length: 7.4 cm 37 weeks 5 days estimated gestational age: 37 weeks 1 day Composite gestational age from present scan: 38 weeks 4 days Estimated weight and percentile: 4525 g, percentile not available Umbilical artery Doppler: S: D ratios ranging from 2.1-2.4, within normal limits, antegrade diastolic flow maintained. IMPRESSION: 1. Single living intrauterine in vertex presentation. 2. Estimated weight of 4525 g. We strive to produce accurate, complete, and clear reports of imaging services. To assist us in improving patient care, this report was composed using standard report templates and voice recognition software. Therefore, it may contain abnormal punctuation, insertions and/or omissions. Occasional wrong-word or sound-alike substitutions may occur. Though we review the report and make efforts to correct it, we do recommend that the report be read carefully in proper context to recognize any text inaccuracies. Dictated by: Chintan Hughes M.D. on 12/02/2022 at 18:13 Approved by: Chintan Hughes M.D. on 12/02/2022 at 18:19
== END ==
PROVIDERS: Family Provider Family Medicine; PCP Physician Assistant; Referring Provider Obstetrics & Gynecology; Visit Provider Obstetrics & Gynecology
DX: O26.843 Uterine size-date discrepancy, third trimester (principal); Z3A.38 38 weeks gestation of pregnancy
CPT/HCPCS: 76815

== ENCOUNTER 2022-12-02 19:00 | Inpatient (IN) | payer OTHER, SELFPAY ==
--- NOTE | 2022-12-02 19:03 | PM.OBHP.1 ---
OB HPI Date/Time Date of admission: 12/02/22 Date Patient Seen: 12/02/22 Time Patient Seen: 19:03 History of Present Condition Chief complaint: IUP, 37+2 wks EGA, GHTN, LGA : 1 Para: 0 Estimated Date of Delivery: 12/22/22 Estimated Gestational Age (weeks): 37+1 Narrative: Beth Santos is a 22 year old primigravida at 37+1 wks EGA by solid dating for ripening/induction due to GHTN requiring Labetalol 300 mg BID for effective control. Serial PIH/PEC labs negative and antepartum testing has been reassuring. is LGA with her most recent EFW earlier today of 4525 grams (> 99th 5'tile). Dating is solid and milestones appropriate throughout the . Due to increasingly labile BP and macrosomia, patient is now admitted for ripening/induction. GBS is negative. Indications Indication for induction OB: gestational HTN/pre-eclampsia History of Present care: good care Dating criteria: LMP confirmed by 1st trimester US Ultrasounds: normal 1st trimester US, normal mid trimester US and abnormal US findings (LGA, 97th %'tile) Obstetrical complications: gestational hypertension and other (Macrosomia) Preadmission Labs Blood type: A (-) negative -: Antibody screen: negative, GBS status: negative, HBsAG: negative, HIV: negative and RPR/VDLR: negative -: Chlamydia screen: not detected and Gonorrhea screen: not detected -: Rubella: immune and Varicella: immune HCT: 30.8 HCAB: negative PAP: Normal 1 hr GTT: 97 Prior (ies) History: N/A Evaluation Evaluation Baseline heart rate: 130 Variability: Moderate (11-25) monitor accelerations: Present Monitor Decelerations: Absent Contraction Frequency (minutes): 3 Uterine Contraction Intensity: Moderate Category of Tracing: Reactive Status: Category l Dilation (cm): 1 Effacement (%): 75 Dilation: Closed Effacement: 60-70% station: -2 Position of cervix: mid Consistency: soft Fried score: 6 PFSH Medical History Anxiety (~2017) Asthma (~2013) Burn Depression (~2015) Heart murmur 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 Open wound of left foot (~01/03/18) Oral contraceptive pill surveillance (~02/22/18) Palpitations Positive TB test Right ankle sprain Right foot pain Sore throat Urinary tract infection Uses oral contraception Surgical History (Updated 08/06/22 @ 15:43 by Lucy Calvin RN) Anesthesia History of tonsillectomy (~2009) [place] teeth extracted Family History (Updated 08/06/22 @ 15:45 by Lucy Calvin RN) Father Diabetes mellitus Hypertension Grandmother Breast cancer Mother Ovarian cyst Grandfather Cancer Grandmother Hypertension Grandfather Cancer Social History marital status: unmarried,single number of children: 0 household members: family (father) lives independently: Yes caregiver/support person: No housing: house pets and animals: Yes (4 dogs, 4 cats. S/O manages litter box) education level: college (Associate's degree, working on [employer]) occupational status: employed current occupational exposures/hazards: No special corrine needs: No travel history: recent (domestic only) seatbelt use: always water heater temp set < 120 deg: Yes working smoke detector in home: Yes fire extinguisher in home: Yes carbon monox detector in home: Yes firearms in home: No do you feel safe at home: Yes Smoking Status: Former smoker Tobacco: How many years used: 4 second hand exposure: Yes (father smokes outdoors) alcohol intake: former (occasionally when not ) substance use type: marijuana (stopped when she learned she was ) during the past year weight has: decreased > 10 lbs (1st trimester lost ~20 lb due to N/V) well-balanced diet: about half the time daily servings fruits/ve-4 caffeine: No (quit drinking coffee when she learned she was ) Type(s) of exercise: walking frequency: daily Meds Home Medications and Allergies Home Medications Medication Instructions Recorded Confirmed Type albuterol sulfate 90 mcg/actuation 1 inh inhalation ONCE 01/17/21 12/02/22 History aerosol inhaler prenat.vits,reed,hhl-npat-hxhwk 1 tab PO DAILY #90 tabs 07/24/22 12/02/22 Rx omeprazole 40 mg capsule,delayed 40 mg PO DAILY #30 caps 09/01/22 12/02/22 Rx release labetalol 300 mg tablet 300 mg PO BID #60 tabs 10/16/22 12/02/22 Rx Allergies Allergy/AdvReac Type Severity Reaction Status Date / Time No Known Drug Allergies Allergy Verified 12/02/22 21:02 Review of Systems Review of Systems Narrative: Problem-specific ROS positives included in HPI OB Exam Vital signs Blood Pressure: 126/75 Pulse Rate: 96 Respiratory Rate: 22 Temperature: 96.4 F HENMT Head: normal to inspection, normocephalic and atraumatic Eyes General: appearance normal, both eyes and all related structures Resp Effort & Inspection: normal respiratory effort and able to speak in complete sentences Auscultation: clear to auscultation bilaterally Cardio Rate: regular rate Rhythm: regular rhythm Heart Sounds: S1 normal, S2 normal and no murmurs Extremities Lower extremity: Yes normal to inspection GI Inspection: normal to inspection Palpation: Yes soft and Yes no hepatosplenomegaly Uterus Location (Fundal Height): 40 Presentation: vertex Estimated Weight (lbs): 9 Objective Labs 12/02/22 20:20 12/02/22 20:20 Labs: CMP and Protein:Creatinine are normal. Assessment and Plan Assessment and Plan Assessment and Plan narrative: ASSESSMENT 1. Intrauterine , 37+2 wks EGA 2. Gestational hypertension, well controlled on PO Labetalol 3. Macrosomia 4. Anemia, chronic 5. GBS negative status PLAN 1. Admit for ripening/induction 2. See admission orders
[2022-12-02] MEDS: miSOPROStoL 25 MCG TABLET 50 MCG PO (20:36)
[2022-12-02 20:41] LABS: Add Manual Diff / Slide Review NO; Basophils Absolute Auto 0 /uL (0-100); Basophils Percent Auto 0.5 % (0-2); Eosinophils Absolute Auto 100 /uL (0-450); Eosinophils Percent Auto 1.3 % (2-4); Hematocrit 30.8 % (36-46); Hemoglobin 10.4 g/dL (12.0-16.0); Lymphocytes Absolute Auto 1600 /uL (1100-4500); Mean Corpuscular HGB Conc 33.8 % (30-36); Mean Corpuscular Hemoglobin 27.9 PG (26-34); Mean Corpuscular Volume 82.5 fL (80-100); Monocytes Absolute Auto 600 /uL (0-900); Monocytes Percent Auto 6.9 % (3-14); Neutrophils Absolute Auto 6600 /uL (1500-7000); Neutrophils Percent Auto 73.3 % (50-75); Platelet Count 369 X10^3/uL (150-400); Red Blood Cell Count 3.73 X10^6/uL (4.0-5.2); Red Cell Distribution Width 14.1 % (11.6-14.8)
[2022-12-02 20:57] LABS: Alanine Aminotransferase 17 IU/L (<35); Albumin 3.6 g/dL (3.5-5.0); Albumin Globulin Ratio 1.2 (1.0-2.8); Alkaline Phosphatase 83 U/L (38-126); Aspartate Aminotransferase 18 IU/L (14-36); BUN Creatinine Ratio 22.4 (6-22); Bilirubin Total 0.3 mg/dL (0.2-1.3); Blood Urea Nitrogen 11 mg/dL (7-17); Calcium 8.7 mg/dL (8.4-10.2); Carbon Dioxide 19 mmol/L (22-32); Chloride 107 mmol/L (98-107); Estimated Glomerular Filt Rate > 60 mL/min (>60); Globulin 3.1 g/dL (1.7-4.1); Glucose 122 mg/dL (70-100); HEMOLYSIS < 15 (0-50); Potassium 3.8 mmol/L (3.4-5.1); Sodium 136 mmol/L (137-145); Total Protein 6.7 g/dL (6.3-8.2)
[2022-12-02 21:08] VITALS: BP 134/78
[2022-12-02] MEDS: ZOLPIDEM 5 MG TABLET PO (21:53)
[2022-12-03] MEDS: miSOPROStoL 25 MCG TABLET 50 MCG PO ×2 (00:39→04:49)
[2022-12-03 01:07] LABS: Creatinine Urine Random 230.1 mg/dL; Protein (Total) Urine Random 37 mg/dL (0-12); Protein Creatinine Ratio Urine 0.16 GRAM/24H
[2022-12-03 09:05] VITALS: BP 146/88; PULSE 107
[2022-12-03] MEDS: LABETALOL 100 MG TABLET 300 MG PO ×2 (09:05→20:54)
--- NOTE | 2022-12-03 09:08 | PM.OBPNLAB ---
Date/Time Date Patient Seen: 12/03/22 Time Patient Seen: 07:55 Pain Control Pain control: tolerating well Pelvic Exam Dilation (cm): 1 Effacement (%): 85 station: -2 Amniotic membrane status: Intact Contractions Contractions on admission: none Monitor mode: External Contraction pattern: Irregular Contraction phase: Resting Contraction intensity: Mild Status status: Category l Heart Rate Baseline: 130 Monitor Accelerations: Present Monitor Decelerations: Absent Monitor Variability: Moderate Assessment and Plan Assessment: other (Ripening ongoing) Plan: begin patient augmentation Comments: Cervical change sufficient to initiate Pitocin.
[2022-12-03] MEDS: LACTATED RINGERS 1,000 ML 100 ML IV (09:15)
[2022-12-03] MEDS: OXYTOCIN PREMIX 30 UNIT/500 ML PLAST..BAG IV (09:15)
[2022-12-03 12:29] VITALS: BP 126/75; PULSE 96; RESP 22; TEMP 35.8
--- NOTE | 2022-12-03 16:04 | PM.OBPNLAB ---
Date/Time Date Patient Seen: 12/03/22 Time Patient Seen: 16:04 Pain Control Pain control: tolerating well Pelvic Exam Dilation (cm): 1 Effacement (%): 85 station: -2 Amniotic membrane status: Intact Contractions Contractions on admission: none Monitor mode: External Pitocin rate (mU/min): 12 Contraction frequency (min): 3 Contraction duration (min): 1 Contraction pattern: Irregular Contraction phase: Resting Contraction intensity: Mild Status status: Category l Heart Rate Baseline: 130 Monitor Accelerations: Present Monitor Decelerations: Episodic and Variable Monitor Variability: Moderate Assessment and Plan Assessment: induction ongoing Comments: Cervical exam mid afternoon shows little change from this a.m.. Will recheck at 5:00 p.m. and if no significant change, will discontinue Pitocin overnight and instead place Cervidil at 7:30 p.m. this evening. Occasional blood pressures into the near severe range but now only mild elevation. IV labetalol will be available should patient have persistent blood pressure elevations in the severe range.
[2022-12-03] MEDS: DINOPROSTONE VAG (CERVIDIL) 10 MG VAG (20:14)
[2022-12-03 20:54] VITALS: BP 143/84; PULSE 104
[2022-12-03 21:33] VITALS: BP 137/77; PULSE 97
[2022-12-03] MEDS: ZOLPIDEM 5 MG TABLET PO (22:13)
[2022-12-04] VITALS (7 sets, daily range): BP systolic 120–143; BP diastolic 70–86; PULSE 85–109; RESP 11–16; TEMP 36.6; O2SAT 98
[2022-12-04 07:52] LABS: Add Manual Diff / Slide Review NO; Basophils Absolute Auto 0 /uL (0-100); Basophils Percent Auto 0.1 % (0-2); Eosinophils Absolute Auto 100 /uL (0-450); Eosinophils Percent Auto 0.7 % (2-4); Hematocrit 31.2 % (36-46); Hemoglobin 10.6 g/dL (12.0-16.0); Lymphocytes Absolute Auto 1300 /uL (1100-4500); Mean Corpuscular Hemoglobin 27.7 PG (26-34); Mean Corpuscular Volume 81.4 fL (80-100); Monocytes Absolute Auto 600 /uL (0-900); Monocytes Percent Auto 6.2 % (3-14); Neutrophils Absolute Auto 8000 /uL (1500-7000); Platelet Count 330 X10^3/uL (150-400); Red Blood Cell Count 3.83 X10^6/uL (4.0-5.2); Red Cell Distribution Width 14.3 % (11.6-14.8)
[2022-12-04 08:05] LABS: Alanine Aminotransferase 16 IU/L (<35); Albumin 3.2 g/dL (3.5-5.0); Albumin Globulin Ratio 1.2 (1.0-2.8); Alkaline Phosphatase 90 U/L (38-126); Aspartate Aminotransferase 17 IU/L (14-36); BUN Creatinine Ratio 14.6 (6-22); Bilirubin Total 0.5 mg/dL (0.2-1.3); Blood Urea Nitrogen 7 mg/dL (7-17); Calcium 8.8 mg/dL (8.4-10.2); Carbon Dioxide 21 mmol/L (22-32); Chloride 104 mmol/L (98-107); Estimated Glomerular Filt Rate > 60 mL/min (>60); Globulin 2.7 g/dL (1.7-4.1); Glucose 84 mg/dL (70-100); HEMOLYSIS < 15 (0-50); Sodium 132 mmol/L (137-145); Total Protein 5.9 g/dL (6.3-8.2)
[2022-12-04] MEDS: LABETALOL 100 MG TABLET 300 MG PO ×2 (09:10→21:11)
[2022-12-04] MEDS: OXYTOCIN PREMIX 30 UNIT/500 ML PLAST..BAG IV (10:29)
--- NOTE | 2022-12-04 12:07 | PM.OBPNLAB ---
Date/Time Date Patient Seen: 12/04/22 Time Patient Seen: 08:40 Pain Control Pain control: tolerating well Pelvic Exam Dilation (cm): 1 Effacement (%): 75 station: -3 Amniotic membrane status: Intact Contractions Monitor mode: External Contraction frequency (min): 6 Contraction duration (min): 1 Contraction pattern: Irregular Contraction phase: Resting Contraction intensity: Mild Status status: Category l Heart Rate Baseline: 145 Monitor Accelerations: Episodic Monitor Decelerations: Absent Monitor Variability: Moderate (Occasionally minimal w/ presumed sleep cycles) Assessment and Plan Assessment: induction ongoing Plan: begin patient augmentation Comments: Little response to Cervidil overnight and the patient states she felt more contractions with oral Cytotec. Cervix is difficult to assess this a.m. as the vertex is higher than it was yesterday. Will re-initiate Pitocin augmentation through the day today and then reassess her cervix this afternoon/evening. Have discussed with the patient and her my concern that the infant is not well engaged in the pelvis which may be due to cephalopelvic disproportion associated with known macrosomia. Also discussed concern about possible shoulder dystocia should progress to vaginal delivery occur. Advised patient and however that I will continue to work with them towards goal of vaginal as long as infant remains stable and her gestational hypertension remains manageable without transitioning to preeclampsia with severe features.
--- NOTE | 2022-12-04 14:28 | P.PNOB_ITS ---
Date/Time Date Patient Seen: 12/04/22 Time Patient Seen: 13:55 Pain Control Pain control: tolerating well Pelvic Exam Dilation (cm): 1 Effacement (%): 75 station: -3 Amniotic membrane status: Intact Contractions Contractions on admission: none Monitor mode: External Contraction frequency (min): 3 Contraction duration (min): 1 Contraction pattern: Irregular Contraction phase: Resting Contraction intensity: Mild Status status: Category l Heart Rate Baseline: 145 Monitor Accelerations: Present Monitor Decelerations: Early Monitor Variability: Moderate Assessment and Plan Assessment: induction ongoing Plan: Comments: Patient requests section. This decision is based on her concern that the infant is too big to come through the pelvis safely, her physical fatigue due to the nearly 2 days of induction she is undergone, and her concern about t he possibility of shoulder dystocia. Patient counseled regarding alternatives, risks, benefits, and potential complications associated with primary section by low transverse cervical incision. With full understanding of the above, a written consent was executed, signed, and witnessed this date. OR and anesthesia notified. Will proceed with primary section as soon as an OR room/crew is available. Pre-op orders executed.
--- NOTE | 2022-12-04 14:34 | PM.PREOP ---
Pre-operative Note COVID-19 COVID-19 status: Not tested Criteria for continued procedure: Non-surgical alternatives not available or appropriate per current SOC Interval Note History & Physical reviewed/Exam performed by Physician: Yes Changes to H&P: No
--- NOTE | 2022-12-04 14:49 | SUR.OPER ---
Supine on padded OR bed, head on pillow, arms secured on padded arm boards at <90 degrees abduction, legs uncrossed, safety belt at thigh, tape over blanket over lower legs. bump under right hip/flank.
[2022-12-04] MEDS: ACETAMINOPHEN 325 MG TABLET 975 MG PO (14:57)
[2022-12-04] MEDS: CITRIC ACID/SODIUM CITRATE 15 ML SOLUTION 30 ML PO (14:57)
[2022-12-04] MEDS: CEFAZOLIN VIAL 3 GM in SODIUM CHLORIDE 0.9% 100 ML IV (15:35)
--- NOTE | 2022-12-04 16:42 | SUR.OPER ---
PLACENTA AND CORD BLOOD TUBES SENT WITH Dada Regan. Myron MelloNBeth
--- NOTE | 2022-12-04 16:59 | PM.OBCS.1 ---
Operative Date/Time/Diagnoses Date of procedure: 12/04/22 Time of procedure: 15:30 Pre-op diagnosis: Intrauterine gestation, folres, 37+4 weeks EGA Gestational hypertension macrosomia Failed induction Post-op diagnosis: same Procedure & Clinicians Procedure: Primary section, low transverse cervical Same procedure as scheduled: Yes Indications: Beth is a 22 yo at 37+4 weeks EGA who was admitted on the evening of 12/02/2022 for cervical ripening and induction due to gestational hypertension requiring labetalol 300 mg PO BID to maintain BP's in the non-severe range as well as macrosomia with the most recent US based EFW of 9#14 oz. Unfortunately despite cervical ripening and nearly two days of pitocin induction her cervix has not dilated and the vertex remains at -3 station. After counseling regarding management options, as well as the risks, and potential complications associated with proimary section, she has opted for primary delivery and is undergoing the procedure at this time Surgeon: Geoff Quintanilla Underground Mine Superintendent: Francesca Leigh Reason for Underground Mine Superintendent: Underground Mine Superintendent required for the safe, effective, and timely completion of this surgery. Anesthesia Type: Spinal Operative Notes Findings: Viable [] infant BW [], Apgars []/[], delivered from the [] presentation. Normal gravid anatomy. Closure Type: primary Specimen(s): cord blood Intraoperative meds administered: Ketorolac and Pitocin Applied: Catheter Blood products transfused: none Procedure in detail: With her informed written consent, the patient was taken to the operating room and placed in the supine position for a primary section procedure, for the indication(s) above. The abdomen was prepped and draped in the usual manner for section and a pre-surgical timeout was taken per [facility] OR protocol. Once effective anesthesia was confirmed, a 15 cm transverse Pfannenstiel incision was made in the skin and taken down through the subcutaneous tissues to the deep fascia. The deep fascia was incised transversely, the rectus abdominal eyes bluntly and sharply, and the peritoneal cavity entered without difficulty. The lower uterine segment was visualized and the position/presentation palpated. A transverse incision at or above the vesicouterine reflection was made with Metzenbaum scissors and transverse hysterotomy performed near the midline. Amniotomy revealed clear fluid. The incision was extended bilaterally with digital traction and the was delivered with vacuum assist from the vertex presentation. The infant was vigorous and cord clamping delayed for 60 seconds. The placenta was delivered intact using gentle cord traction and fundal massage.The uterine cavity was then cleared of any clot/debris first with a sloppy wet lap tape followed by a dry lap tape. Ring forceps were then applied to the angles and the midline of the incised MARGARITA. A primary closure of the uterus was then accomplished with #1 CCGS in a running interlocking stitch followed by a 2nd layer of #1 CCGS in a running interlocking imbricating stitch. One additional fzuelh-yh-ipgzj suture was required to achieve complete hemostasis. An ascending uterine artery suture was also required on the left side due to a small hematoma which formed at the left angle. Once pelvic hemostasis was assured, the bladder flap and anterior peritoneum were closed with a running 2-0 Vicryl suture and the fascia closed with #1 Vicryl in a running stitch initiated at both angles and tying separately near the midline. The subcutaneous tissues were reapproximated with 2-0 plain catgut suture using inverted interrupted stitches. The skin edges were then brought together with 4-0 Monocryl in a subcuticular closure and the incision was reinforced with 1 Steri-Strips. An appropriate compression dressing was applied and the patient transferred to PACU for recovery and subsequent transfer to the Center for recuperation. Complications: none Winfred Baby 1: Gender: Female Presentation: vertex Position: Left Occiput Anterior Placental Delivery Description: Spontaneous Cord Vessel Description: 3 Vessels score (1 min): 7 score (5 min): 9 weight: 9 lb 8.595 oz Post-operative Condition: stable Disposition: PACU Aftercare: routine postop
[2022-12-04] MEDS: KETOROLAC 30 MG/ML VIAL IV (17:09)
[2022-12-04] MEDS: diphenhydrAMINE 50 MG/ML VIAL 25 MG IV (18:45)
[2022-12-04] MEDS: OXYCODONE IR 10 MG TABLET PO (20:18)
[2022-12-04] MEDS: DOCUSATE 100 MG CAPSULE PO (21:10)
[2022-12-04] MEDS: LACTATED RINGERS 1,000 ML 100 ML IV (22:30)
[2022-12-04] MEDS: ACETAMINOPHEN 325 MG TABLET 650 MG PO (23:12)
[2022-12-05] MEDS: KETOROLAC 30 MG/ML VIAL IV ×3 (00:32→12:27)
[2022-12-05] MEDS: LACTATED RINGERS 1,000 ML 100 ML IV ×2 (00:33→11:11)
[2022-12-05] MEDS: ACETAMINOPHEN 325 MG TABLET 650 MG PO ×3 (05:30→18:32)
[2022-12-05 06:58] LABS: Add Manual Diff / Slide Review NO; Basophils Absolute Auto 0 /uL (0-100); Basophils Percent Auto 0.1 % (0-2); Eosinophils Absolute Auto 100 /uL (0-450); Eosinophils Percent Auto 0.9 % (2-4); Hematocrit 27.4 % (36-46); Hemoglobin 9.2 g/dL (12.0-16.0); Lymphocytes Absolute Auto 1800 /uL (1100-4500); Lymphocytes Percent Auto 16.9 % (25-40); Mean Corpuscular HGB Conc 33.7 % (30-36); Mean Corpuscular Hemoglobin 27.7 PG (26-34); Mean Corpuscular Volume 82.1 fL (80-100); Monocytes Absolute Auto 800 /uL (0-900); Monocytes Percent Auto 7.2 % (3-14); Neutrophils Absolute Auto 8200 /uL (1500-7000); Neutrophils Percent Auto 74.9 % (50-75); Platelet Count 300 X10^3/uL (150-400); Red Blood Cell Count 3.34 X10^6/uL (4.0-5.2); White Blood Cell Count 10.9 X10^3/uL (4.5-11.0)
[2022-12-05 07:09] LABS: Alanine Aminotransferase 13 IU/L (<35); Albumin 2.8 g/dL (3.5-5.0); Albumin Globulin Ratio 1.1 (1.0-2.8); Alkaline Phosphatase 73 U/L (38-126); Aspartate Aminotransferase 19 IU/L (14-36); BUN Creatinine Ratio 18.1 (6-22); Bilirubin Total 0.4 mg/dL (0.2-1.3); Blood Urea Nitrogen 13 mg/dL (7-17); Calcium 8.3 mg/dL (8.4-10.2); Carbon Dioxide 24 mmol/L (22-32); Chloride 102 mmol/L (98-107); Estimated Glomerular Filt Rate > 60 mL/min (>60); Globulin 2.6 g/dL (1.7-4.1); Glucose 82 mg/dL (70-100); HEMOLYSIS < 15 (0-50); Potassium 4.4 mmol/L (3.4-5.1); Sodium 131 mmol/L (137-145); Total Protein 5.4 g/dL (6.3-8.2)
[2022-12-05] MEDS: DOCUSATE 100 MG CAPSULE PO ×2 (08:27→21:13)
[2022-12-05] MEDS: PANTOPRAZOLE DR 40 MG TABLET PO (08:28)
--- NOTE | 2022-12-05 10:58 | P.PNOB_ITS ---
Subjective - OB Subjective Patient comments: no complaints, pain well controlled, incisional pain, tolerating diet and flatus present baby status: doing well [place] feeding status: exclusively breast feeding Date Patient Seen: 12/05/22 Time Patient Seen: 10:58 Exam Vital Signs (past 8 hours): Oxygen Delivery Method Room Air Const General: cooperative and comfortable Nutritional Appearance: average body habitus Orientation: alert and oriented x3 HENMT Head: normal to inspection, atraumatic and abrasion Ears: hearing grossly normal bilaterally Face and sinus: face symmetric Eyes General: appearance normal, both eyes and all related structures Conjunctivae: conjunctivae normal Sclera: sclerae normal EOM: EOM intact bilaterally Neck Neck: normal visual inspection Resp Effort & Inspection: normal respiratory effort and able to speak in complete sentences Auscultation: clear to auscultation bilaterally Cardio Rate: regular rate Rhythm: regular rhythm Heart Sounds: S1 normal, S2 normal and no murmurs GI Inspection: normal to inspection and incision (Surgical dressing clean and dry) Palpation: soft, no hepatosplenomegaly and tender (Mild, diffuse postsurgical tenderness) External Female Exam: other (No significant bleeding noted) Extrem General: no calf tenderness Psych Appearance: grossly normal Mental Status: mental status grossly normal Speech and Movement: speech and movement normal Mood: congruent mood Affect: normal affect Attitude: cooperative Thought Process: normal Thought Content: normal Judgment: judgment good Objective Labs 12/05/22 06:34 12/05/22 06:34 Labs: Laboratory Results - last 24 hr 12/05/22 12/05/22 06:34 06:34 WBC 10.9 RBC 3.34 L Hgb 9.2 L Hct 27.4 L MCV 82.1 MCH 27.7 MCHC 33.7 RDW 15.0 H Plt Count 300 Neut % (Auto) 74.9 Lymph % (Auto) 16.9 L [place] % (Auto) 7.2 Eos % (Auto) 0.9 L Baso % (Auto) 0.1 Neut # (Auto) 8200 H Lymph # (Auto) 1800 [place] # (Auto) 800 Eos # (Auto) 100 Baso # (Auto) 0 Sodium 131 L Potassium 4.4 Chloride 102 Carbon Dioxide 24 BUN 13 Creatinine 0.72 Estimated GFR > 60 BUN/Creatinine Ratio 18.1 Glucose 82 Calcium 8.3 L Total Bilirubin 0.4 AST 19 ALT 13 Alkaline Phosphatase 73 Total Protein 5.4 L Albumin 2.8 L Globulin 2.6 Albumin/Globulin Ratio 1.1 Assessment & Plan Time Spent With Patient Time: Total time spent is greater than 50% in coordination of care (as documented) at patient's floor/unit and/or counseling patient: Time with patient: 15-24 minutes
[2022-12-05] MEDS: IBUPROFEN 600 MG TABLET PO (18:33)
[2022-12-05] MEDS: OXYCODONE IR 10 MG TABLET PO (18:46)
[2022-12-05] MEDS: LABETALOL 100 MG TABLET PO (21:13)
[2022-12-06] MEDS: ACETAMINOPHEN 325 MG TABLET 650 MG PO ×2 (00:36→08:22)
[2022-12-06] MEDS: IBUPROFEN 600 MG TABLET PO ×2 (00:36→08:22)
[2022-12-06] MEDS: OXYCODONE IR 10 MG TABLET PO ×2 (03:51→08:30)
[2022-12-06 08:30] VITALS: BP 144/100; PULSE 101
[2022-12-06] MEDS: DOCUSATE 100 MG CAPSULE PO (08:30)
[2022-12-06] MEDS: LABETALOL 100 MG TABLET PO (08:30)
--- NOTE | 2022-12-06 10:22 | PM.OBDS.1 ---
Discharge Providers Provider Date of admission: 12/02/22 19:00 Discharge Date: 12/06/22 Primary care physician: Sharon Hernández PA-C Consults: 12/02/22 19:12 Consult to Anesthesiology Urgent Comment: Consulting Provider: Geoff Quintanilla Reason for consultation: Epidural Has provider been notified: No 12/04/22 18:22 Consult to Bacteriology Professor Routine Comment: Discharge provider: Geoff Quintanilla MD Summary Hospital Course Date Patient Seen: 12/06/22 Time Patient Seen: 09:39 Diagnoses: Intrauterine gestation, 37+ 4 weeks gestational age, delivered by primary section due to failed induction Gestational hypertension macrosomia Hospital Course: Beth was admitted for cervical ripening/induction on the evening of 12/02/2022 at 37+ 2 weeks gestational age due to gestational hypertension requiring labetalol 300 mg p.o. b.i.d. for control. Over the ensuing 40+ hours she underwent ripening/induction using 2 rounds of prostaglandins and intravenous Pitocin. Despite good contraction activity, the vertex never descended into the pelvis and was in fact ballotable when a primary was performed late on the afternoon of 12/04/2022. The infant, was a viable female weighing 4326 g (9 lb 8.6 oz) with Apgars of 7/9. Following delivery both mother and baby have done well with the mother experiencing prompt return of passing flatus, waiting successfully, ambulating independently, tolerating regular diet, and her pain is reasonably well controlled with oral pain medications. She will be discharged at this time to home after counseling regarding precautionary symptoms, limitations of activity, medications, and plans for follow-up which will be within the next week. She was also instructed to continue all of her medications with the exception of the labetalol dose will be decreased to 100 mg p.o. b.i.d.. In the meanwhile, she will continue to monitor her blood pressure at home with the assistance of a relative and report any elevations above the 155/105 range with plans to titrate her labetalol dosage upward if needed. Prescriptions at discharge will also include oxycodone 10 mg every 6 hours as needed for pain, dispensed 20, and ibuprofen 600 mg p.o. q.6 hours as needed pain. Patient will also use Colace 200 mg p.o. b.i.d. and/or MiraLax daily or b.i.d. as needed for constipation relief. Peripartum Data Infant Delivery Method: Section Episiotomy description: None Procedures: Spinal block anesthetic Primary section, low transverse cervical complications: none 1: Gender: Female Disposition of : home Status at Discharge Cognitive/behavioral status at discharge: oriented Functional status at discharge: independent ambulation Overall status at discharge: patient is progressing back to baseline Time Spent with Patient Time attestation: Total time spent providing and/or coordinating discharge services: Time spent: Less than 30 minutes Objective Labs 12/05/22 06:34 12/05/22 06:34 Exam Vital Signs (past 8 hours): - 12/06/22 08:30 Pulse Rate 101 H Blood Pressure 144/100 H Oxygen Delivery Method Room Air Const General: cooperative and comfortable Nutritional Appearance: average body habitus Orientation: alert and oriented x3 HENMT Head: normal to inspection, atraumatic and abrasion Ears: hearing grossly normal bilaterally Face and sinus: face symmetric Eyes General: appearance normal, both eyes and all related structures Conjunctivae: conjunctivae normal Sclera: sclerae normal EOM: EOM intact bilaterally Neck Neck: normal visual inspection Resp Effort & Inspection: normal respiratory effort and able to speak in complete sentences Auscultation: clear to auscultation bilaterally Cardio Rate: regular rate Rhythm: regular rhythm Heart Sounds: S1 normal, S2 normal and no murmurs GI Inspection: normal to inspection and incision (Compression dressing removed, Aquacel applied) Palpation: soft, no hepatosplenomegaly, mass (Firm, mildly tender fundus, U -3) and tender (Mild, diffuse postsurgical tenderness) External Female Exam: other (No significant bleeding noted) Extrem General: no calf tenderness Psych Appearance: grossly normal Mental Status: mental status grossly normal Speech and Movement: speech and movement normal Mood: congruent mood Affect: normal affect Attitude: cooperative Thought Process: normal Thought Content: normal Judgment: judgment good Discharge Plan Discharge Plan Patient Disposition: Home Provider Discharge Comment: Please review the written instructions you received when you were discharged from the hospital. Your follow-up appointment should be scheduled for 1 week after your delivery and I look forward to seeing you then. If however in the meanwhile you have any issues, concerns, or problems, please contact me either through the office phone at [phone], or via the patient portal. Discharge orders & Medications Prescriptions: New docusate sodium 100 mg Capsule 200 mg PO BID Qty: 60 2RF labetalol 100 mg Tablet 100 mg PO BID Qty: 60 6RF ibuprofen 600 mg Tablet 600 mg PO Q6H Qty: 30 2RF oxycodone 10 mg Tablet 10 mg PO Q4H PRN (Reason: Pain, Severe (7-10)) Qty: 20 0RF Continued prenat.vits,reed,ppe-clgj-aitsj Tablet 1 tab PO DAILY Qty: 90 3RF omeprazole 40 mg capsule,delayed release(DR/EC) 40 mg PO DAILY Qty: 30 6RF albuterol sulfate 90 mcg/actuation HFA aerosol inhaler 1 inh inhalation ONCE Discontinued labetalol 300 mg tablet 300 mg PO BID Qty: 60 4RF Follow up/Referrals: Sharon Hernández PA-C [Primary Care Provider] - Geoff Quintanilla MD [Physician] - (One week surgical incision check. 6 week follow up. ) Discharge Health Status Multidrug resistant organism: No MDRO Diet/Activity/Treatments Diet: Diet as Tolerated Activity: As tolerated Other treatments: Wuyc-dtk-asmwwis Tylenol may be used for additional pain relief. Ovgy-evf-szupjxb MiraLax may be used as needed for additional relief of constipation. Skin/Wound/Dressing Care Report to your healthcare provider any signs of infection, such as:: chills, fever, increased pain, unusual drainage and unusual redness Dressing: Dressings will be removed at the time of your one-week postop visit. Visit Report/Discharge Packet Instructions: DI for , DI for and Nipple Soreness, DI for Prescription Opioid Use Stand Alone Forms: Discharge: Care, Patient Portal/API, Stroke Signs & Symptoms Discharge Data Primary Care Provider: Sharon Hernández
[2022-12-06 12:22] VITALS: BP 135/86; PULSE 99
[2022-12-06 12:23] VITALS: BP 139/87; PULSE 103; RESP 20; TEMP 36.8
== END 2022-12-06 12:55 | disposition home or self-care (01) | DRG 788 ==
PROVIDERS: Admitting Provider Obstetrics & Gynecology; Family Provider Family Medicine; PCP Physician Assistant; Referring Provider Obstetrics & Gynecology; Visit Provider Obstetrics & Gynecology
PROC: 10D00Z1 Extraction of Products of Conception, Low, Open Approach (ICD-10-PCS; CPT 59514; principal; 2022-12-04 16:00)
DX: O13.4 Gestational [pregnancy-induced] hypertension without significant proteinuria, complicating childbirth (principal); Z3A.37 37 weeks gestation of pregnancy; Z37.0 Single live birth; O36.63X0 Maternal care for excessive fetal growth, third trimester, not applicable or unspecified; O99.02 Anemia complicating childbirth; D64.9 Anemia, unspecified; O76 Abnormality in fetal heart rate and rhythm complicating labor and delivery; O61.0 Failed medical induction of labor; O26.843 Uterine size-date discrepancy, third trimester; Z3A.38 38 weeks gestation of pregnancy
CPT/HCPCS: 36415; 59050; 59200; 59510; 59514; 76815; 80053; 82570; 84156; 85025; 86850; 86900; 86901; G0379; J0690; J1200; J1885; J2274; J2405; J2590; J3010

== ENCOUNTER 2022-12-09 15:02 | Observation (INO) | payer OTHER, SELFPAY ==
[2022-12-09] VITALS (11 sets, daily range): BP systolic 141–165; BP diastolic 75–93; PULSE 83–109; RESP 15–18; TEMP 36.8–36.9; O2SAT 99
[2022-12-09 15:24] LABS: Add Manual Diff / Slide Review NO; Basophils Absolute Auto 100 /uL (0-100); Eosinophils Absolute Auto 400 /uL (0-450); Eosinophils Percent Auto 5.4 % (2-4); Hematocrit 30.4 % (36-46); Hemoglobin 10.3 g/dL (12.0-16.0); Lymphocytes Absolute Auto 1700 /uL (1100-4500); Mean Corpuscular HGB Conc 33.8 % (30-36); Mean Corpuscular Hemoglobin 27.7 PG (26-34); Mean Corpuscular Volume 81.9 fL (80-100); Monocytes Absolute Auto 300 /uL (0-900); Monocytes Percent Auto 4.9 % (3-14); Neutrophils Absolute Auto 4100 /uL (1500-7000); Neutrophils Percent Auto 62.7 % (50-75); Platelet Count 515 X10^3/uL (150-400); Red Blood Cell Count 3.71 X10^6/uL (4.0-5.2); Red Cell Distribution Width 14.5 % (11.6-14.8); White Blood Cell Count 6.6 X10^3/uL (4.5-11.0)
[2022-12-09] MEDS: LABETALOL 100 MG TABLET 200 MG PO (15:24)
[2022-12-09 15:35] LABS: Alanine Aminotransferase 34 IU/L (<35); Albumin 3.6 g/dL (3.5-5.0); Albumin Globulin Ratio 1.1 (1.0-2.8); Alkaline Phosphatase 79 U/L (38-126); Aspartate Aminotransferase 27 IU/L (14-36); BUN Creatinine Ratio 23.7 (6-22); Bilirubin Total 0.2 mg/dL (0.2-1.3); Blood Urea Nitrogen 14 mg/dL (7-17); Calcium 8.8 mg/dL (8.4-10.2); Carbon Dioxide 25 mmol/L (22-32); Chloride 103 mmol/L (98-107); Estimated Glomerular Filt Rate > 60 mL/min (>60); Globulin 3.2 g/dL (1.7-4.1); Glucose 74 mg/dL (70-100); HEMOLYSIS < 15 (0-50); Sodium 137 mmol/L (137-145); Total Protein 6.8 g/dL (6.3-8.2)
[2022-12-09] MEDS: LABETALOL 20 MG/4 ML SYRINGE IV (15:57)
[2022-12-09 16:45] LABS: Creatinine Urine Random 75.5 mg/dL; Protein (Total) Urine Random 16 mg/dL (0-12); Protein Creatinine Ratio Urine 0.21 GRAM/24H
--- NOTE | 2022-12-09 16:52 | PC.NURSE ---
1635- Dr. Quintanilla at the bedside going over D/C instructions. Pt. verbalized understanding 1641- D/C instrution went over with this RN, pt verbalized understanding, signed and given a copy. 1648- Pt D/C in stable condition. Ambulatory with and spouse.
--- NOTE | 2022-12-09 16:57 | PC.NURSE ---
1504: pt arrive to [facility], ambulatory and accompanied by partner and . RN explained POC to pt and partner with their understanding. Urine sample collected and lab at bedside shortly thereafter. 1515: report given to Dolly GURROLA.
== END 2022-12-09 16:48 | disposition home or self-care (01) ==
PROVIDERS: Admitting Provider Obstetrics & Gynecology; Family Provider Family Medicine; PCP Physician Assistant; Referring Provider Obstetrics & Gynecology; Visit Provider Obstetrics & Gynecology
DX: O13.3 Gestational [pregnancy-induced] hypertension without significant proteinuria, third trimester (principal); Z3A.38 38 weeks gestation of pregnancy
CPT/HCPCS: 36415; 80053; 82570; 84156; 85025; G0378; G0379

== ENCOUNTER → 2023-01-07 13:22 | Outpatient (CLI) | payer OTHER, SELFPAY ==
[2023-01-07 19:48] LABS: Add Manual Diff / Slide Review NO; Basophils Absolute Auto 100 /uL (0-100); Basophils Percent Auto 1.1 % (0-2); Eosinophils Absolute Auto 400 /uL (0-450); Eosinophils Percent Auto 6.6 % (2-4); Hematocrit 37.4 % (36-46); Hemoglobin 12.2 g/dL (12.0-16.0); Lymphocytes Absolute Auto 2000 /uL (1100-4500); Lymphocytes Percent Auto 29.5 % (25-40); Mean Corpuscular HGB Conc 32.5 % (30-36); Mean Corpuscular Hemoglobin 26.1 PG (26-34); Mean Corpuscular Volume 80.1 fL (80-100); Monocytes Absolute Auto 300 /uL (0-900); Monocytes Percent Auto 4.4 % (3-14); Neutrophils Absolute Auto 3900 /uL (1500-7000); Neutrophils Percent Auto 58.4 % (50-75); Platelet Count 416 X10^3/uL (150-400); Red Blood Cell Count 4.67 X10^6/uL (4.0-5.2); White Blood Cell Count 6.6 X10^3/uL (4.5-11.0)
[2023-01-07 19:55] LABS: HEMOLYSIS < 15 (0-50); Iron 49 ug/dL (37-170)
[2023-01-07 20:05] LABS: Percent Iron Saturation 12 % (15-50); Total Iron Binding Capacity 402 ug/dL (265-497); Transferrin 302 mg/dL (206-381)
[2023-01-07 20:30] LABS: Ferritin 17 ng/mL (6-137)
== END ==
PROVIDERS: Family Provider Family Medicine; PCP Physician Assistant; Visit Provider Physician Assistant
DX: O99.019 Anemia complicating pregnancy, unspecified trimester (principal)
CPT/HCPCS: 82728; 83540; 83550; 85025

== ENCOUNTER → 2023-04-26 13:29 | Outpatient (CLI) | payer OTHER, SELFPAY ==
[2023-04-26 14:39] LABS: Add Manual Diff / Slide Review NO; Basophils Absolute Auto 100 /uL (0-100); Basophils Percent Auto 1.5 % (0-2); Eosinophils Absolute Auto 300 /uL (0-450); Eosinophils Percent Auto 5.2 % (2-4); Hematocrit 37.5 % (36-46); Hemoglobin 12.6 g/dL (12.0-16.0); Lymphocytes Absolute Auto 2100 /uL (1100-4500); Mean Corpuscular HGB Conc 33.7 % (30-36); Mean Corpuscular Hemoglobin 28.4 PG (26-34); Mean Corpuscular Volume 84.3 fL (80-100); Monocytes Absolute Auto 300 /uL (0-900); Monocytes Percent Auto 5.6 % (3-14); Neutrophils Absolute Auto 2200 /uL (1500-7000); Neutrophils Percent Auto 44.7 % (50-75); Platelet Count 370 X10^3/uL (150-400); Red Blood Cell Count 4.45 X10^6/uL (4.0-5.2); Red Cell Distribution Width 15.8 % (11.6-14.8); White Blood Cell Count 4.9 X10^3/uL (4.5-11.0)
[2023-04-26 14:51] LABS: Alanine Aminotransferase 137 IU/L (<35); Albumin 4.5 g/dL (3.5-5.0); Albumin Globulin Ratio 1.6 (1.0-2.8); Alkaline Phosphatase 51 U/L (38-126); Aspartate Aminotransferase 41 IU/L (14-36); BUN Creatinine Ratio 11.8 (6-22); Bilirubin Total 0.4 mg/dL (0.2-1.3); Blood Urea Nitrogen 11 mg/dL (7-17); Carbon Dioxide 29 mmol/L (22-32); Chloride 100 mmol/L (98-107); Estimated Glomerular Filt Rate > 60 mL/min (>60); Globulin 2.8 g/dL (1.7-4.1); Glucose 84 mg/dL (70-100); HEMOLYSIS < 15 (0-50); Lipase 49 U/L (23-300); Potassium 4.4 mmol/L (3.4-5.1); Sodium 136 mmol/L (137-145); Total Protein 7.3 g/dL (6.3-8.2)
== END ==
PROVIDERS: Family Provider Family Medicine; PCP Physician Assistant; Referring Provider Surgery; Visit Provider Surgery
DX: K80.20 Calculus of gallbladder without cholecystitis without obstruction (principal)
CPT/HCPCS: 36415; 80053; 83690; 85025

== ENCOUNTER 2023-05-18 11:01 | Day surgery (SDC) | payer OTHER, SELFPAY ==
[2023-05-11 09:56] VITALS: BMI 40.4
[2023-05-18] VITALS (14 sets, daily range): BP systolic 105–172; BP diastolic 65–103; PULSE 67–111; RESP 15–20; TEMP 35.8–36.4; O2SAT 92–100; BMI 40.4
--- NOTE | 2023-05-18 | PATH_ITS ---
[facility] Accession Number: [id number] No. of containers..01 Tissue . 01 Material submitted: . gallbladder - GALLBLADDER . 01 Diagnosis: Gallbladder, Cholecystectomy: Mild, chronic calculous cholecystitis and reactive changes. Negative for dysplasia and malignancy. [facility] 05/25/2023 1539 Local . 01 Electronically signed: . Kirstin Osborn MD, Pathologist NPI- [id number] . 01 Gross description: . The specimen is received in formalin labeled with the patient's name, , and gallbladder, consists of an intact gallbladder measuring 11.1 x 3.0 x 3.0 cm with an unremarkable external surface. The cystic duct margin is inked blue and no pericystic lymph node is identified. The lumen is filled with green viscous bile and multiple yellow bosselated calculi measuring up to 1.5 cm in greatest dimension found within, but not obstructing, the cystic duct. The mucosa is green and velvety with no yellow discoloration, polyps, or lesions identified. The [place] average 0.2 cm thick. Marketing Designer sections to include the cystic duct margin and full thickness sections are submitted in cassette A1. ([id number]) /MRV 05/20/2023 1236 Local . 01 Pathologist provided ICD-10: K80.10 . 01 CPT . 135858 Specimen Comment: A courtesy copy of this report has been sent to [phone] Performed at: [facility] [address] [place] [address] [id number] MD Osvaldo Burdick MD Phone: [phone]
[2023-05-18] MEDS: LACTATED RINGERS 1,000 ML 42 ML IV ×2 (11:40→13:29)
--- NOTE | 2023-05-18 12:16 | PM.HP.1 ---
History of Present Illness History of Present Illness Date Patient Seen: 05/18/23 Time Patient Seen: 12:16 Chief complaint: SDC Narrative: Beth is here for her laparoscopic cholecystectomy for biliary colic. She continues to have symptoms. 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 Sore throat Open wound of left foot (~01/03/18) Burn Uses oral contraception Oral contraceptive pill surveillance (~02/22/18) Positive TB test Right ankle sprain Asthma (~2013) Depression (~2015) Palpitations Anxiety (~2017) Surgical History [place] teeth extracted Anesthesia History of tonsillectomy (~2009) Family History Father Diabetes mellitus Hypertension Grandmother Breast cancer Mother Ovarian cyst Grandfather Cancer Grandmother Hypertension Grandfather Cancer Social History marital status: unmarried,single number of children: 0 household members: significant other and children lives independently: Yes caregiver/support person: No housing: house pets and animals: Yes (4 dogs, 4 cats. S/O manages litter box) education level: college (Associate's degree, working on [employer]) occupational status: employed current occupational exposures/hazards: No special corrine needs: No travel history: recent (domestic only) seatbelt use: always water heater temp set < 120 deg: Yes working smoke detector in home: Yes fire extinguisher in home: Yes carbon monox detector in home: Yes firearms in home: No do you feel safe at home: Yes Smoking Status: Former smoker Tobacco: How many years used: 4 second hand exposure: Yes (father smokes outdoors) alcohol intake: former substance use type: marijuana (stopped when she learned she was ) during the past year weight has: decreased > 10 lbs (1st trimester lost ~20 lb due to N/V) well-balanced diet: about half the time daily servings fruits/ve-4 caffeine: No (quit drinking coffee when she learned she was ) Type(s) of exercise: walking frequency: daily Meds Home Medications and Allergies Home Medications Medication Instructions Recorded Confirmed Type albuterol sulfate 90 mcg/actuation 1 inh inhalation ONCE 12/08/22 05/18/23 History aerosol inhaler Allergies Allergy/AdvReac Type Severity Reaction Status Date / Time No Known Drug Allergies Allergy Verified 05/18/23 11:35 Exam Vital Signs (past 8 hours): - 05/18/23 11:36 Temperature 97.1 F L Pulse Rate 100 H Respiratory Rate 16 Blood Pressure 144/88 H Pulse Oximetry 98 Oxygen Delivery Method Room Air Oxygen Delivery Method Room Air Const General: No acute distress Resp Effort & Inspection: normal respiratory effort Assessment & Plan Assessment and plan (1) Gallstone: Qualifiers: Cholecystitis presence: without cholecystitis Biliary obstruction: without biliary obstruction Qualified Code(s): K80.20 - Calculus of gallbladder without cholecystitis without obstruction Status: Acute Plan We reviewed the risks and benefits of laparoscopic cholecystectomy and she would like to proceed.
[2023-05-18] MEDS: CEFAZOLIN VIAL 3 GM in SODIUM CHLORIDE 0.9% 100 ML IV (12:30)
--- NOTE | 2023-05-18 12:45 | SUR.OPER ---
Supine on padded OR bed, head on pillow, safety belt at thigh, left arm padded and tucked at side. Right arm secured on padded arm board <90 degrees abduction. Legs uncrossed. Padded footboard in place. Tape over blanket to secure lower legs.
[2023-05-18] MEDS: BUPIVACAINE 0.5% (PF) 30 ML, EPINEPHrine 0.15 MG INJ (12:55)
--- NOTE | 2023-05-18 14:18 | SUR.PHASEI ---
See new order for IV Tylenol from Aleida Howard CRNA
[2023-05-18] MEDS: ACETAMINOPHEN IV 1,000 MG/100 ML VIAL 400 MG IV (14:43)
[2023-05-18] MEDS: OXYCODONE IR 5 MG TABLET PO (15:46)
[2023-05-18] MEDS: ONDANSETRON 4 MG/2 ML INJ IV (15:46)
--- NOTE | 2023-05-18 17:15 | PM.OP.1 ---
Operative Date/Time/Diagnoses Date of procedure: 05/18/23 Time of procedure: 17:15 Pre-op diagnosis: Symptomatic cholelithiasis Post-op diagnosis: same Procedure & Clinicians Procedure: Laparoscopic cholecystectomy Same procedure as scheduled: Yes Surgeon: Lemuel Sands Anesthesia Type: General Operative Notes Procedure in detail: The patient was given preoperative antibiotics. The patient was brought to the operating room and placed on the table in the supine position. General endotracheal anesthesia was induced. The abdomen was prepped and draped. A time-out was performed. We made a 1 cm infraumbilical incision. We dissected down to the base of the umbilical stalk using cautery. We grasped the umbilical stalk with a Kinga clamp to elevate the abdominal wall. We scored the fascia in the midline with cautery. We pierced the peritoneum with a Peon clamp. The Javon port was placed and the abdomen was insufflated to 15 mmHg. A 5 mm 30 degree laparoscopic was inserted. There was no evidence of any injury from the entry. Next, we placed 5 mm ports in the subxiphoid position and right upper quadrant at the midclavicular line and anterior axillary line. The patient was then positioned in reverse Trendelenburg and the table was tilted to the left. The gallbladder was grasped at the dome and retracted cephalad. We then dissected the cystic structures with a combination of hook cautery and blunt dissection. We obtained a critical view. We placed hemoclips on the cystic duct and artery and divided the cystic duct and artery sharply between the clips. The gallbladder was then dissected off the liver and placed in a specimen retrieval bag. We irrigated the right upper quadrant and all the aspirate returned clear. We then removed the 5 mm ports under direct vision we removed the Javon port. We then injected some local into the fascia and closed the fascia with 3 interrupted 0 Vicryl sutures. The skin incisions were closed with 4-0 Monocryl and Steri-Strips were applied. Band-Aids were applied over the Steri-Strips. EBL: 30 mL Specimen: Gallbladder and contents Post-operative Condition: stable Disposition: PACU
== END 2023-05-18 17:26 | disposition home or self-care (01) ==
PROVIDERS: Family Provider Family Medicine; PCP Physician Assistant; Referring Provider Surgery; Visit Provider Surgery
PROC: 0FT44ZZ Resection of Gallbladder, Percutaneous Endoscopic Approach (ICD-10-PCS; CPT 47562; principal; 2023-05-18 12:30)
DX: K80.10 Calculus of gallbladder with chronic cholecystitis without obstruction (principal)
CPT/HCPCS: 47562; 81025; J0131; J0171; J0330; J0690; J1100; J1170; J1885; J2250; J2405; J2704; J3010

== ENCOUNTER → 2023-08-23 10:48 | Outpatient (CLI) | payer OTHER, SELFPAY | PROVIDERS: Family Provider Family Medicine; PCP Physician Assistant; Visit Provider Family Medicine | DX: R11.2 Nausea with vomiting, unspecified (principal) | CPT/HCPCS: 87086 ==

== ENCOUNTER → 2023-09-16 12:12 | Outpatient (CLI) | payer OTHER, SELFPAY ==
[2023-09-16 19:18] LABS: Alanine Aminotransferase 37 IU/L (<35); Albumin 4.7 g/dL (3.5-5.0); Albumin Globulin Ratio 1.3 (1.0-2.8); Alkaline Phosphatase 58 U/L (38-126); Amylase 61 U/L (30-110); Aspartate Aminotransferase 31 IU/L (14-36); Bilirubin Total 0.7 mg/dL (0.2-1.3); Blood Urea Nitrogen 17 mg/dL (7-17); Calcium 9.9 mg/dL (8.4-10.2); Carbon Dioxide 26 mmol/L (22-32); Chloride 104 mmol/L (98-107); Estimated Glomerular Filt Rate > 60 mL/min (>60); Globulin 3.5 g/dL (1.7-4.1); Glucose 86 mg/dL (70-100); HEMOLYSIS < 15 (0-50); Lipase 62 U/L (23-300); Potassium 4.3 mmol/L (3.4-5.1); Sodium 139 mmol/L (137-145); Total Protein 8.2 g/dL (6.3-8.2)
[2023-09-16 19:29] LABS: Add Manual Diff / Slide Review NO; Basophils Absolute Auto 100 /uL (0-100); Eosinophils Absolute Auto 200 /uL (0-450); Eosinophils Percent Auto 1.8 % (2-4); Hematocrit 41.8 % (36-46); Hemoglobin 14.2 g/dL (12.0-16.0); Lymphocytes Absolute Auto 2900 /uL (1100-4500); Lymphocytes Percent Auto 32.6 % (25-40); Mean Corpuscular HGB Conc 33.9 % (30-36); Mean Corpuscular Hemoglobin 29.1 PG (26-34); Mean Corpuscular Volume 85.8 fL (80-100); Monocytes Absolute Auto 400 /uL (0-900); Monocytes Percent Auto 4.9 % (3-14); Neutrophils Absolute Auto 5200 /uL (1500-7000); Neutrophils Percent Auto 59.7 % (50-75); Platelet Count 409 X10^3/uL (150-400); Red Blood Cell Count 4.87 X10^6/uL (4.0-5.2); Red Cell Distribution Width 13.7 % (11.6-14.8); White Blood Cell Count 8.8 X10^3/uL (4.5-11.0)
[2023-09-16 19:32] LABS: Hemoglobin A1C% w Est Avg Glu 5.3 % (4.0-6.0)
== END ==
PROVIDERS: Family Provider Family Medicine; PCP Physician Assistant; Visit Provider Physician Assistant
DX: R11.2 Nausea with vomiting, unspecified (principal); R10.11 Right upper quadrant pain; Z13.1 Encounter for screening for diabetes mellitus
CPT/HCPCS: 80053; 82150; 83036; 83690; 85025

== ENCOUNTER → 2023-11-05 13:56 | Outpatient (CLI) | payer OTHER, SELFPAY ==
--- NOTE | 2023-11-05 13:58 | DI.US.S_ITS ---
PROCEDURE: US PELVIC COMPLETE INDICATIONS: recurrent lower pelvic pain, IUD position TECHNIQUE: Real-time scanning was performed of the pelvic organs, with image documentation. Additional endovaginal scanning was necessary due to incomplete visualization of the adnexal and endometrial structures by transabdominal scanning. COMPARISON: None. FINDINGS: Uterus: Uterus is anteverted and normal in size at 9.0 x 7.3 x 5.1 cm. The myometrium is homogeneous. No fibroids seen. The IUD appears positioned in the lower uterine body/cervix. Ovaries: The right ovary measures 3.5 x 2.8 x 2.0 cm, with a calculated ovarian volume of 10.2 cc. The left ovary measures 3.8 x 2.5 x 2.4 cm, with a calculated ovarian volume of 12.0 cc. Note is made of a 1.6 x 1.4 x 1.6 cm hypoechoic heterogeneous structure in the region of the left adnexa with peripheral vascularity; differential diagnosis includes hemorrhagic ovarian cysts. Less likely differential diagnosis includes endometrioma or dermoid. In a patient, ectopic is also difficult to rule out. The ovaries otherwise have a normal sonographic appearance. Less than 12 follicles can be seen in each ovary. No adnexal masses are seen. Other: No pathologic free abdominal or pelvic fluid. IMPRESSION: 1. IUD appears abnormally positioned in the lower uterine body/cervix 2. Hemorrhagic left ovarian cyst. Difficult to totally rule out endometrioma or dermoid. In a patient, ectopic is also difficult to rule out. We strive to produce accurate, complete, and clear reports of imaging services. To assist us in improving patient care, this report was composed using standard report templates and voice recognition software. Therefore, it may contain abnormal punctuation, insertions and/or omissions. Occasional wrong-word or sound-alike substitutions may occur. Though we review the report and make efforts to correct it, we do recommend that the report be read carefully in proper context to recognize any text inaccuracies. Dictated by: Geoff Das M.D. on 11/05/2023 at 16:14 Approved by: Geoff Das M.D. on 11/05/2023 at 16:26
== END ==
PROVIDERS: Family Provider Family Medicine; PCP Physician Assistant; Referring Provider Nurse Practitioner Adult Health; Visit Provider Nurse Practitioner Adult Health
DX: N83.202 Unspecified ovarian cyst, left side (principal); R10.2 Pelvic and perineal pain; Z97.5 Presence of (intrauterine) contraceptive device
CPT/HCPCS: 76830; 76856

== ENCOUNTER → 2024-06-29 11:31 | Outpatient (CLI) | payer OTHER, SELFPAY ==
[2024-06-29 19:42] LABS: Alanine Aminotransferase 86 IU/L (<35); Albumin 4.3 g/dL (3.5-5.0); Albumin Globulin Ratio 1.3 (1.0-2.8); Alkaline Phosphatase 48 U/L (38-126); Aspartate Aminotransferase 51 IU/L (14-36); BUN Creatinine Ratio 23.1 (6-22); Bilirubin Total 0.6 mg/dL (0.2-1.3); Blood Urea Nitrogen 18 mg/dL (7-17); Calcium 9.1 mg/dL (8.4-10.2); Carbon Dioxide 24 mmol/L (22-32); Chloride 104 mmol/L (98-107); Cholesterol 184 mg/dL (140-199); Estimated Glomerular Filt Rate > 60 mL/min (>60); Globulin 3.2 g/dL (1.7-4.1); Glucose 86 mg/dL (70-100); HDL Cholesterol 46 mg/dL (40-60); HEMOLYSIS < 15 (0-50); LDL Cholesterol Calculated 78 mg/dL (<100); Potassium 4.1 mmol/L (3.4-5.1); Sodium 134 mmol/L (137-145); Total Protein 7.5 g/dL (6.3-8.2); Triglycerides 298 mg/dL (35-150)
[2024-06-29 19:44] LABS: HEMOLYSIS < 15 (0-50); Iron 94 ug/dL (37-170)
[2024-06-29 19:47] LABS: Add Manual Diff / Slide Review NO; Basophils Absolute Auto 100 /uL (0-100); Eosinophils Absolute Auto 200 /uL (0-450); Eosinophils Percent Auto 2.3 % (2-4); Hematocrit 38.4 % (36-46); Lymphocytes Absolute Auto 2500 /uL (1100-4500); Lymphocytes Percent Auto 36.9 % (25-40); Mean Corpuscular HGB Conc 33.8 % (30-36); Mean Corpuscular Hemoglobin 29.3 PG (26-34); Mean Corpuscular Volume 86.6 fL (80-100); Monocytes Absolute Auto 500 /uL (0-900); Monocytes Percent Auto 7.3 % (3-14); Neutrophils Absolute Auto 3500 /uL (1500-7000); Neutrophils Percent Auto 52.5 % (50-75); Platelet Count 391 X10^3/uL (150-400); Red Blood Cell Count 4.43 X10^6/uL (4.0-5.2); Red Cell Distribution Width 13.4 % (11.6-14.8); White Blood Cell Count 6.7 X10^3/uL (4.5-11.0)
[2024-06-29 20:00] LABS: HCG Quantitative /Beta subunit < 2.39 mIU/mL; Percent Iron Saturation 28 % (15-50); Total Iron Binding Capacity 335 ug/dL (265-497); Transferrin 301 mg/dL (206-381)
[2024-06-29 20:17] LABS: Creatinine Urine Random 204.09 mg/dL; Protein (Total) Urine Random 8 mg/dL (0-12); Protein Creatinine Ratio Urine 0.03 GRAM/24H
[2024-06-29 20:18] LABS: Ferritin 13 ng/mL (6-137)
== END ==
PROVIDERS: Family Provider Family Medicine; PCP Physician Assistant; Visit Provider Family Medicine
DX: N93.8 Other specified abnormal uterine and vaginal bleeding (principal); I10 Essential (primary) hypertension; N92.6 Irregular menstruation, unspecified; E03.8 Other specified hypothyroidism; R00.0 Tachycardia, unspecified; Z83.2 Family history of diseases of the blood and blood-forming organs and certain disorders involving the immune mechanism; Z83.3 Family history of diabetes mellitus; R74.8 Abnormal levels of other serum enzymes
CPT/HCPCS: 80053; 80061; 82570; 82728; 83036; 83540; 83550; 84156; 84439; 84443; 84702; 85025; 86337

== ENCOUNTER → 2024-08-28 11:47 | Outpatient (CLI) | payer OTHER, SELFPAY ==
[2024-08-28 20:04] LABS: Hematocrit 41.7 % (36-46)
[2024-08-28 20:12] LABS: Alanine Aminotransferase 132 IU/L (<35); Albumin 4.6 g/dL (3.5-5.0); Albumin Globulin Ratio 1.4 (1.0-2.8); Alkaline Phosphatase 47 U/L (38-126); Aspartate Aminotransferase 69 IU/L (14-36); BUN Creatinine Ratio 16.7 (6-22); Bilirubin Total 0.6 mg/dL (0.2-1.3); Blood Urea Nitrogen 13 mg/dL (7-17); Calcium 9.8 mg/dL (8.4-10.2); Carbon Dioxide 20 mmol/L (22-32); Chloride 105 mmol/L (98-107); Estimated Glomerular Filt Rate > 60 mL/min (>60); Globulin 3.2 g/dL (1.7-4.1); Glucose 97 mg/dL (70-100); HEMOLYSIS 17 (0-50); Potassium 4.3 mmol/L (3.4-5.1); Sodium 135 mmol/L (137-145); Total Protein 7.8 g/dL (6.3-8.2)
[2024-08-28 20:20] LABS: Vitamin D 25 Hydroxy (D3) 23.1 ng/mL (30.0-100.0)
[2024-08-28 20:42] LABS: Thyroid Stimulating Hormone 7.62 uIU/mL (0.47-4.68)
[2024-08-28 20:43] LABS: Ferritin 40 ng/mL (6-137)
[2024-08-28 20:58] LABS: Hemoglobin A1C% w Est Avg Glu 5.1 % (4.0-6.0)
[2024-08-30 01:07] LABS: HBsAg Screen Negative (Negative); Hepatitis A Antibody IgM Negative (Negative); Hepatitis B Core Antibody IgM Negative (Negative); Hepatitis C Antibody Non Reactive (Non Reactive)
[2024-08-31 15:11] LABS: ANA Screen, IFA Negative (.)
== END ==
PROVIDERS: Family Provider Family Medicine; PCP Family Medicine; Visit Provider Family Medicine
DX: N92.1 Excessive and frequent menstruation with irregular cycle (principal); Z97.5 Presence of (intrauterine) contraceptive device; N93.8 Other specified abnormal uterine and vaginal bleeding; R74.8 Abnormal levels of other serum enzymes; I10 Essential (primary) hypertension; E87.1 Hypo-osmolality and hyponatremia; E03.9 Hypothyroidism, unspecified; R79.0 Abnormal level of blood mineral
CPT/HCPCS: 80053; 80074; 82306; 82728; 83036; 84443; 85014; 85018; 86038